=== PATIENT | male | born 1960 | race Caucasian/White ===

== ENCOUNTER 2017-03-23 14:26 | Inpatient (IN) | payer OTHER ==
[2017-03-23 14:48] VITALS: BMI 28.6
--- NOTE | 2017-03-23 17:41 | HP ---
CIWA Score - CIWA Score Nausea/Vomitin Muscle Tremors: 3 Anxiety: 3 Agitation: 3 Paroxysmal Sweats: 1-Minimal Palms Moist Orientation: 0-Oriented Tacttile Disturbances: 2-Mild Itch/Numbness/Burn Auditory Disturbances: 2-Mild Harshness/Frighten Visual Disturbances: 2-Mild Sensitivity Headache: 2-Mild CIWA-Ar Total Score: 21 Admission ROS BHS - HPI Chief Complaint: i need help to stop drinking alcohol Allergies/Adverse Reactions: Allergies Allergy/AdvReac Type Severity Reaction Status Date / Time No Known Allergies Allergy Verified 03/23/17 15:28 History of Present Illness: this 56 year old white male seeking help to come to detox from alcohol,last detox 01/25 [facility] longest period of sobriety 6 months multiple admissions in the past multiple medical problem,htn,type 2 dm,seizure,depression,insomnia Exam Limitations: No Limitations - Ebola screening Have you traveled outside of the country in the last 21 days: No (N) Have you had contact with anyone from an Ebola affected area: No Have you been sick,other than usual withdrawal symptoms: No Do you have a fever: No - Review of Systems Constitutional: Loss of Appetite, Night Sweats, Changes in sleep, Weakness EENT: reports: Nose Congestion Respiratory: reports: No Symptoms reported, Other (coppd) Cardiac: reports: No Symptoms Reported GI: reports: Diarrhea, Nausea, Poor Appetite, Abdominal cramping : reports: No Symptoms Reported Musculoskeletal: reports: Back Pain, Joint Pain, Muscle Pain Integumentary: reports: Dryness Neuro: reports: Headache, Tremors Endocrine: reports: No Symptoms Reported Hematology: reports: No Symptoms Reported Psychiatric: reports: No Sypmtoms Reported, Judgement Intact, Mood/Affect Appropiate, Orientated x3, Depressed (insomnia) Patient History - Patient Medical History Hx Anemia: Yes (NOT ON MEDS) Hx Asthma: No Hx Chronic Obstructive Pulmonary Disease (COPD): No Hx Cardiac Disorders: No Hx Hypertension: Yes (on med) Hx Hypercholesterolemia: Yes (on med) Hx Pacemaker: No HX Cerebrovascular Accident: No Hx Seizures: Yes (2 WEEKS AGO) Hx Diabetes: Yes (bgm-96) Hx Gastrointestinal Disorders: No Hx Liver Disease: No Hx Genitourinary Disorders: No Hx Sexually Transmitted Disorders: No Hx Renal Disease (ESRD): No Hx Thyroid Disease: Yes (ON MED BUT NONCOMPLIANT nhypothyroidism) Hx Human Immunodeficiency Virus (HIV): No (NEGATIVE HX last 08/26) Hx Hepatitis C: No Hx Depression: Yes Hx Suicide Attempt: Yes (attempted to jump in front of the bus) Hx Bipolar Disorder: No Hx Schizophrenia: No Other Medical History: no suicidal,no homicidal - Patient Surgical History Past Surgical History: Yes Hx Abdominal Surgery: Yes (intestinal repair sx in 1999/ umbillical hernia repair) Hx Orthopedic Surgery: Yes (L ankle fx sx 20 years ago) Other Surgical History: surgery for diverticulitis Anesthesia Reaction: No - PPD History Previous Implant?: Yes Documented Results: Negative w/proof Implanted On Prior R Admission?: Yes Date: 08/19/15 PPD to be Administered?: Yes - Smoking Cessation Smoking history: Current every day smoker Have you smoked in the past 12 months: Yes Aproximately how many cigarettes per day: 20 Hx Chewing Tobacco Use: No Initiated information on smoking cessation: Yes 'Breaking Loose' booklet given: 03/23/17 - Substance & Tx. History Hx Alcohol Use: Yes - Substances Abused Alcohol Route: Oral Frequency: Daily Amount used: VODKA(2 PINTS)/[employer] ICE TEA(1 PINT) Age of first use: 8 Date of Last Use: 03/23/17 Family Disease History - Family Disease History Family Disease History: Other: Father (alcohol,), Mother (alcohol, ) Admission Physical Exam BHS - Vital Signs Vital Signs: Vital Signs - 24 hr 03/23/17 14:46 Temperature 95.8 F L Pulse Rate 88 Respiratory 20 Rate Blood Pressure 136/83 - Physical General Appearance: Yes: Moderate Distress, Tremorous, Irritable, Sweating, Anxious HEENTM: Yes: Hearing grossly Normal, Normal ENT Inspection, Normocephalic, Nasal Congestion Respiratory: Yes: Lungs Clear, Normal Breath Sounds, No Respiratory Distress Neck: Yes: Within Normal Limits Breast: Yes: Within Normal Limits Cardiology: Yes: Regular Rhythm, Regular Rate, S1, S2, Bradycardia Abdominal: Yes: Within Normal Limits, Normal Bowel Sounds, Non Tender, Flat, Soft, Surgical Scar (incisional hernia) Genitourinary: Yes: Within Normal Limits Back: Yes: Muscle Spasm Musculoskeletal: Yes: full range of Motion, Back pain, Muscle Pain Extremities: Yes: Tremors Neurological: Yes: helper maintenance cleaning II-XII NML intact, Alert, Motor Strength 5/5, Normal Response Integumentary: Yes: Dry Lymphatic: Yes: Within Normal Limits - Diagnostic (1) Alcohol dependence with uncomplicated withdrawal Current Visit: No Status: Acute (2) Hypertension Current Visit: No Status: Chronic (3) Hypothyroidism Current Visit: No Status: Chronic (4) MDD (major depressive disorder), recurrent episode, moderate Current Visit: No Status: Chronic (5) Nicotine dependence Current Visit: No Status: Chronic (6) Type 2 diabetes mellitus Current Visit: No Status: Chronic (7) COPD (chronic obstructive pulmonary disease) Current Visit: Yes Status: Acute (8) Seizure Current Visit: Yes Status: Acute (9) Syncope Current Visit: Yes Status: Acute (10) Insomnia Current Visit: Yes Status: Acute (11) History of bowel diversion surgery Current Visit: Yes Status: Acute (12) Diverticulitis Current Visit: Yes Status: Acute (13) Incisional hernia Current Visit: Yes Status: Acute Cleared for Admission S - Detox or Rehab [facility] Level of Care: Medically Managed Detox Regimen/Protocol: Librium [facility] Breath Alcohol Content Breath Alcohol Content: 0.222 Urine Drug Screen - Results Drug Screen Negative: No Urine Drug Screen Results: BZO-Benzodiazepines, TCA-Tricyclic Antidepress
[2017-03-23] MEDS ORDERED: MAGNESIUM HYDROX 2400MG/30ML ORAL SUSPENSION 30 ML CUP PO PRN (18:05)
[2017-03-23] MEDS ORDERED: MAGNESIUM CITRATE 300 ML BOTTLE PO PRN (18:05)
[2017-03-23] MEDS ORDERED: P-EPHED 60MG/TRIPROLIDI 2.5MG TABLET PO PRN (18:05)
[2017-03-23] MEDS ORDERED: guaiFENesin/D-METHORPHAN HB 10 ML UNIT-DOSE CUPS PO PRN (18:05)
[2017-03-23] MEDS ORDERED: IBUPROFEN 400 MG TABLET (FP) PO PRN (18:05)
[2017-03-23] MEDS ORDERED: chlordiazePOXIDE HCL 25 MG CAPSULE PO PRN (18:05)
[2017-03-23] MEDS ORDERED: ACETAMINOPHEN 325 MG TABLET (FP) PO PRN (18:05)
[2017-03-23] MEDS ORDERED: MENTHOL/PHENOL 1 EACH UD MM PRN (18:05)
[2017-03-23] MEDS ORDERED: MAG HYDROX/AL HYDROX/SIMETH 30 ML UNIT-DOSE CUP PO PRN (18:05)
[2017-03-23] MEDS ORDERED: chlordiazePOXIDE HCL 25 MG CAPSULE PO ONE (18:05)
[2017-03-23] MEDS: ROSUVASTATIN CA 10 MG TABLET (FP) PO SCH (22:41)
[2017-03-23] MEDS: chlordiazePOXIDE HCL 25 MG CAPSULE PO SCH (22:41)
[2017-03-23] MEDS: diphenhydrAMINE HCL 50 MG CAPSULE PO PRN (22:41)
[2017-03-23] MEDS: THIAMINE HCL 100 MG TABLET (FP) PO SCH (22:41)
[2017-03-24] MEDS: chlordiazePOXIDE HCL 25 MG CAPSULE PO SCH ×4 (05:21→22:44)
[2017-03-24] MEDS: LEVOTHYROXINE NA 25 MCG TABLET (FP) PO SCH (06:49)
[2017-03-24] MEDS: metFORMIN HCL 500 MG TABLET (FP) PO SCH ×2 (06:49→16:30)
[2017-03-24 09:52] LABS: MCH 32.5 pg (25.7-33.7); MCHC 33.8 g/dl (32.0-35.9); MEAN CELL VOLUME 96.2 fl (80-96); MEAN PLT VOLUME 8.8 fl (7.5-11.1); PLATELET COUNT 156 K/MM3 (134-434); RDW 15.2 % (11.9-15.9); WHITE BLOOD COUNT 6.1 K/mm3 (4.0-10.0)
[2017-03-24 10:05] LABS: ALBUMIN 3.7 g/dl (3.4-5.0); ANION GAP 10 (8-16); BILIRUBIN,TOTAL 0.4 mg/dL (0.2-1.0); CALCIUM 8.3 mg/dL (8.5-10.1); CHOLESTEROL 274 mg/dL (50-200); CO2 29 mmol/L (21-32); COCKROFT - GAULT 119.61; CREATININE 0.8 mg/dL (0.7-1.3); GLUCOSE,RANDOM 86 mg/dL (74-106); SGPT/ALT 42 U/L (12-78); THYROXINE (T4) 4.1 ug/dl (4.5-12.1); TOT PROT 6.9 g/dl (6.4-8.2)
[2017-03-24 10:11] LABS: ALK PHOS 110 U/L (45-117); LDL CHOLESTEROL (ONLY SJRH) 156 mg/dL (5-100); SGOT/AST 44 U/L (15-37); THYROID STIMULATING HORMONE 3.52 uIU/ml (0.358-3.74)
[2017-03-24] MEDS: NICOTINE 21 MG/24 HOURS TOPICAL PATCH TD SCH (10:47)
[2017-03-24] MEDS: PRENATAL VITAMINS W/ FOLIC ACID TABLET (FP) PO SCH (10:47)
[2017-03-24] MEDS: amLODIPine BESYLATE 10 MG TABLET (FP) PO SCH (10:47)
[2017-03-24] MEDS: LOPERAMIDE HCL 2 MG CAPSULE PO PRN (12:40)
[2017-03-24] MEDS ORDERED: ALBUTEROL SO4 2.5/IPRATROPIUM 0.5 INH SOL 3 ML VIAL.NEB. NEB PRN (14:52)
[2017-03-24] MEDS ORDERED: POTASSIUM CHLORIDE TABS 20 MEQ TABLET.ER (FP) PO ONE (14:57)
--- NOTE | 2017-03-24 14:57 | PN ---
[facility] CIWA - CIWA Score Nausea/Vomitin-Mild Nausea/No Vomiting Muscle Tremors: 4-Moderate,w/Arms Extend Anxiety: 2 Agitation: 2 Paroxysmal Sweats: 2 Orientation: 0-Oriented Tacttile Disturbances: 2-Mild Itch/Numbness/Burn Auditory Disturbances: 2-Mild Harshness/Frighten Visual Disturbances: 2-Mild Sensitivity Headache: 0-None Present CIWA-Ar Total Score: 17 BHS Progress Note (SOAP) Subjective: Diarrhea, Interrupted Sleep, Tremors, Body Aches. Objective: PT. A & O X 3, OBSERVED AMBULATING ON UNIT. PT. DENIES CHEST PAIN. PATIENT REPORTS HISTORY OF COPD. 03/24/17 14:55 Vital Signs Temperature 96.7 F L 03/24/17 13:27 Pulse Rate 83 03/24/17 13:27 Respiratory Rate 20 03/24/17 13:27 Blood Pressure 154/103 03/24/17 13:27 O2 Sat by Pulse Oximetry (%) Laboratory Last Values WBC 6.1 K/mm3 (4.0-10.0) 03/24/17 07:30 RBC 4.49 M/mm3 (4.00-5.60) 03/24/17 07:30 Hgb 14.6 GM/dL (11.7-16.9) D 03/24/17 07:30 Hct 43.2 % (35.4-49) D 03/24/17 07:30 MCV 96.2 fl (80-96) H 03/24/17 07:30 MCHC 33.8 g/dl (32.0-35.9) 03/24/17 07:30 RDW 15.2 % (11.9-15.9) D 03/24/17 07:30 Plt Count 156 K/MM3 (134-434) D 03/24/17 07:30 MPV 8.8 fl (7.5-11.1) D 03/24/17 07:30 Sodium 142 mmol/L (136-145) 03/24/17 07:30 Potassium 3.4 mmol/L (3.5-5.1) L 03/24/17 07:30 Chloride 103 mmol/L (98-107) 03/24/17 07:30 Carbon Dioxide 29 mmol/L (21-32) D 03/24/17 07:30 Anion Gap 10 (8-16) 03/24/17 07:30 BUN 16 mg/dL (7-18) 03/24/17 07:30 Creatinine 0.8 mg/dL (0.7-1.3) D 03/24/17 07:30 Creat Clearance w eGFR > 60 (>60) 03/24/17 07:30 POC Glucometer 94 UNITS (()) 03/24/17 05:20 Random Glucose 86 mg/dL (74-106) D 03/24/17 07:30 Calcium 8.3 mg/dL (8.5-10.1) L 03/24/17 07:30 Total Bilirubin 0.4 mg/dL (0.2-1.0) D 03/24/17 07:30 AST 44 U/L (15-37) H D 03/24/17 07:30 ALT 42 U/L (12-78) D 03/24/17 07:30 Alkaline Phosphatase 110 U/L (45-117) D 03/24/17 07:30 Total Protein 6.9 g/dl (6.4-8.2) 03/24/17 07:30 Albumin 3.7 g/dl (3.4-5.0) 03/24/17 07:30 Triglycerides 240 mg/dL (35-160) H 03/24/17 07:30 Cholesterol 274 mg/dL (50-200) H 03/24/17 07:30 Total LDL Cholesterol 156 mg/dL (5-100) H 03/24/17 07:30 HDL Cholesterol 81 mg/dL (40-60) H 03/24/17 07:30 TSH 3.52 uIU/ml (0.358-3.74) D 03/24/17 07:30 Resin T3 Uptake 38.0 % (33-40) 03/24/17 07:30 RPR Titer Nonreactive (NONREACTIVE) 03/24/17 07:30 LABS NOTED. Assessment: WITHDRAWAL SYMPTOMS. 03/24/17 15:01 Plan: CONTINUE DETOX. DUONEB TREATMENTS PRN. K, 20 MEQ X 1 NOW, THEN 20 MEQ BID AFTER FOR LOW ADMISSION K LEVEL. ADVISED PATIENT TO FOLLOW-UP WITH [employer] [facility] AFTER DISCHARGE FROM DETOX FOR GENERAL MEDICAL ASSESSMENT AND FOR ABNORMAL ADMISSION LAB VALUES.
[2017-03-24] MEDS: ALBUTEROL SO4 6.7 GM HFA INHALER IH PRN ×2 (18:03→22:44)
[2017-03-24] MEDS: POTASSIUM CHLORIDE TABS 20 MEQ TABLET.ER (FP) PO SCH (22:44)
[2017-03-24] MEDS: THIAMINE HCL 100 MG TABLET (FP) PO SCH (22:44)
[2017-03-24] MEDS: ROSUVASTATIN CA 10 MG TABLET (FP) PO SCH (22:44)
[2017-03-24] MEDS: diphenhydrAMINE HCL 50 MG CAPSULE PO PRN (22:45)
[2017-03-25] MEDS: chlordiazePOXIDE HCL 25 MG CAPSULE PO SCH ×3 (05:29→17:01)
[2017-03-25] MEDS: metFORMIN HCL 500 MG TABLET (FP) PO SCH ×2 (06:04→17:01)
[2017-03-25] MEDS: LEVOTHYROXINE NA 25 MCG TABLET (FP) PO SCH (06:05)
[2017-03-25] MEDS: ALBUTEROL SO4 6.7 GM HFA INHALER IH PRN (06:06)
[2017-03-25] MEDS: POTASSIUM CHLORIDE TABS 20 MEQ TABLET.ER (FP) PO SCH ×2 (10:40→22:38)
[2017-03-25] MEDS: NICOTINE 21 MG/24 HOURS TOPICAL PATCH TD SCH (10:40)
[2017-03-25] MEDS: PRENATAL VITAMINS W/ FOLIC ACID TABLET (FP) PO SCH (10:40)
[2017-03-25] MEDS: amLODIPine BESYLATE 10 MG TABLET (FP) PO SCH (10:40)
--- NOTE | 2017-03-25 13:03 | EKG ---
Test Reason : Blood Pressure : / mmHG Vent. Rate : 083 BPM Atrial Rate : 083 BPM P-R Int : 168 ms QRS Dur : 094 ms QT Int : 406 ms P-R-T Axes : 066 056 054 degrees QTc Int : 477 ms NORMAL SINUS RHYTHM NORMAL ECG NO PREVIOUS ECGS AVAILABLE Confirmed by MICHEAL ENRIQUE MD ([id number]) on 03/25/2017 1:03:24 PM Referred By: Confirmed By:MICHEAL ENRIQUE MD
--- NOTE | 2017-03-25 13:24 | PN ---
S CIWA - CIWA Score Nausea/Vomitin-Mild Nausea/No Vomiting Muscle Tremors: 4-Moderate,w/Arms Extend Anxiety: 3 Agitation: 3 Paroxysmal Sweats: 3 Orientation: 0-Oriented Tacttile Disturbances: 0-None Auditory Disturbances: 0-None Visual Disturbances: 0-None Headache: 0-None Present CIWA-Ar Total Score: 14 S Progress Note (SOAP) Subjective: Anxiety,tremors,sweating,interrupted sleep,restless Objective: 03/25/17 13:21 Vital Signs - 8 hr 03/25/17 03/25/17 03/25/17 06:26 09:25 13:19 Temperature 96.8 F L 96.0 F L 97.2 F L Pulse Rate 88 90 91 H Respiratory 18 20 20 Rate Blood Pressure 145/101 138/89 151/101 Laboratory Tests 03/23/17 03/24/17 03/24/17 15:40 05:20 07:30 WBC 6.1 RBC 4.49 Hgb 14.6 D Hct 43.2 D MCV 96.2 H MCHC 33.8 RDW 15.2 D Plt Count 156 D MPV 8.8 D Sodium Potassium Chloride Carbon Dioxide Anion Gap BUN Creatinine Creat Clearance w eGFR POC Glucometer 96 94 Random Glucose Calcium Total Bilirubin AST ALT Alkaline Phosphatase Total Protein Albumin Triglycerides Cholesterol Total LDL Cholesterol HDL Cholesterol TSH Resin T3 Uptake RPR Titer 03/24/17 03/24/17 03/24/17 07:30 07:30 07:30 WBC RBC Hgb Hct MCV MCHC RDW Plt Count MPV Sodium 142 Potassium 3.4 L Chloride 103 Carbon Dioxide 29 D Anion Gap 10 BUN 16 Creatinine 0.8 D Creat Clearance w eGFR > 60 POC Glucometer Random Glucose 86 D Calcium 8.3 L Total Bilirubin 0.4 D AST 44 H D ALT 42 D Alkaline Phosphatase 110 D Total Protein 6.9 Albumin 3.7 Triglycerides 240 H Cholesterol 274 H Total LDL Cholesterol 156 H HDL Cholesterol 81 H TSH 3.52 D Cancelled Resin T3 Uptake 38.0 Cancelled RPR Titer Nonreactive 03/24/17 03/24/17 03/25/17 07:30 16:25 05:30 WBC RBC Hgb Hct MCV MCHC RDW Plt Count MPV Sodium Potassium Chloride Carbon Dioxide Anion Gap BUN Creatinine Creat Clearance w eGFR POC Glucometer 134 114 Random Glucose Calcium Total Bilirubin AST ALT Alkaline Phosphatase Total Protein Albumin Triglycerides Cancelled Cholesterol Cancelled Total LDL Cholesterol Cancelled HDL Cholesterol Cancelled TSH Resin T3 Uptake RPR Titer labs noted Assessment: 03/25/17 13:22 Withdrawal sx. Hyperlipidemia Hypokalemia Plan: Continue detox
--- NOTE | 2017-03-25 14:53 | CONSULT ---
[facility] Psychiatric Consult - Data Date of interview: 03/25/17 Admission source: [facility] Identifying data: Readmission to [facility] for this 56 y/o male seeking detox treatment on for alcohol dependence.Patient is single,a father of three,domiciled,unemployed and supported on [facility] benefits. Substance Abuse History: - Smoking Cessation. Smoking history: Current every day smoker. Have you smoked in the past 12 months: Yes. Aproximately how many cigarettes per day: 20. Hx Chewing Tobacco Use: No. Initiated information on smoking cessation: Yes. 'Breaking Loose' booklet given: 03/23/17. - Substance & Tx. History. Hx Alcohol Use: Yes. - Substances Abused. Alcohol. Route: Oral. Frequency: Daily. Amount used: VODKA(2 PINTS)/[employer] ICE TEA(1 PINT). Age of first use: 8. Date of Last Use: 03/23/17. Confirmed by patient. Medical History: COPD,anemia,hypertension,hypothyroidism,alcohol-related seizures,diabetes mellitus and a history of surgeries (abdominal surgery for diverticulosis and inguinal herniorraphy).Noted past history of orthosurgery for fracture of left ankle. Psychiatric History: Early onset of emotional disturbances (committed to [facility] at age [age] for depression).History of multiple psychiatric hospitalizations.Patient is known to [facility] and [place].Diagnosed with MDD and prescribed zoloft 150 mg/day + trazodone 150 mg/hs.Mr Maravilla admits to sporadic adherence to his medications." I don't take these medications on a daily basis.I skipped days." Patient informs that he does not have a psychiatric OPD care provider.Stopped going to [facility] OPD clinic.For scripts,he relies on a primary care doctor.Eager to resume medications at this time.Patient denies history of suicide attempts. Physical/Sexual Abuse/Trauma History: Patient denies. Additional Comment: Urine Drug Screen Results: BZO-Benzodiazepines, TCA- Tricyclic Antidepressant.Noted. Mental Status Exam - Mental Status Exam Alert and Oriented to: Time, Place, Person Cognitive Function: Good Patient Appearance: Unkempt, Disheveled Mood: Depressed, Sad, Withdrawn, Anxious Affect: Constricted Patient Behavior: Fatigued, Appropriate, Cooperative Speech Pattern: Clear Voice Loudness: Normal Thought Process: Goal Oriented Thought Disorder: Not Present Hallucinations: Denies Suicidal Ideation: Denies Homicidal Ideation: Denies Insight/Judgement: Poor Sleep: Poorly, Difficulty falling asleep Appetite: Fair Muscle strength/Tone: Normal Gait/Station: Normal Psychiatric Findings - Problem List (Central 1, 2,3) (1) Alcohol dependence with uncomplicated withdrawal Current Visit: Yes Status: Acute (2) Nicotine dependence Current Visit: Yes Status: Acute (3) MDD (major depressive disorder), recurrent episode, moderate Current Visit: Yes Status: Chronic (4) COPD (chronic obstructive pulmonary disease) Current Visit: Yes Status: Chronic (5) Diverticulitis Current Visit: No Status: Chronic (6) History of bowel diversion surgery Current Visit: No Status: Chronic (7) Incisional hernia Current Visit: No Status: Chronic (8) Seizure Current Visit: Yes Status: Acute (9) Hypertension Current Visit: Yes Status: Chronic (10) Hypothyroidism Current Visit: Yes Status: Chronic (11) Type 2 diabetes mellitus Current Visit: Yes Status: Chronic (12) Insomnia Current Visit: Yes Status: Acute - Initial Treatment Plan Initial Treatment Plan: Psychoeducation.Detoxification.Medications : zoloft 100 mg po daily + trazodone 100 mg po hs.Side effects/benefits discussed with patient.Made aware of potential for priapism (trazodone) and suicidal ideation, sexual impotence (zoloft).Patient insists that these medications have always been well tolerated and he agrees to their inclusion in this regimen.Observation.
[2017-03-25 14:55] LABS: URINE APPEARANCE CLEAR; URINE BILIRUBIN NEGATIVE (NEGATIVE); URINE BLOOD NEGATIVE (NEGATIVE); URINE COLOR LTYELLOW; URINE GLUCOSE (UA) NEGATIVE (NEGATIVE); URINE KETONE NEGATIVE (NEGATIVE); URINE LEUK ESTERASE NEGATIVE (NEGATIVE); URINE NITRITE NEGATIVE (NEGATIVE); URINE PROTEIN NEGATIVE (NEGATIVE); URINE UROBILINOGEN NEGATIVE E.U./dl (0.2-1.0)
[2017-03-25] MEDS ORDERED: SERTRALINE HCL 50 MG TABLET (FP) PO SCH (15:00)
[2017-03-25] MEDS: SERTRALINE HCL 50 MG TABLET (FP) PO SCH (15:18)
[2017-03-25] MEDS: hydrOXYzine PAMOATE 50 MG CAPSULE (FP) PO PRN (17:04)
[2017-03-25] MEDS: traZODone HCL 100 MG TABLET (FP) PO SCH (22:38)
[2017-03-25] MEDS: THIAMINE HCL 100 MG TABLET (FP) PO SCH (22:38)
[2017-03-25] MEDS: ROSUVASTATIN CA 10 MG TABLET (FP) PO SCH (22:38)
[2017-03-25] MEDS: chlordiazePOXIDE 5 MG CAPSULE PO SCH (22:38)
[2017-03-26] MEDS: hydrOXYzine PAMOATE 50 MG CAPSULE (FP) PO PRN ×2 (05:32→10:52)
[2017-03-26] MEDS: chlordiazePOXIDE 5 MG CAPSULE PO SCH ×3 (05:33→17:06)
[2017-03-26] MEDS: LEVOTHYROXINE NA 25 MCG TABLET (FP) PO SCH (07:20)
[2017-03-26] MEDS: metFORMIN HCL 500 MG TABLET (FP) PO SCH ×2 (07:21→17:05)
[2017-03-26] MEDS: SERTRALINE HCL 50 MG TABLET (FP) PO SCH (10:49)
[2017-03-26] MEDS: PRENATAL VITAMINS W/ FOLIC ACID TABLET (FP) PO SCH (10:49)
[2017-03-26] MEDS: NICOTINE 21 MG/24 HOURS TOPICAL PATCH TD SCH (10:49)
[2017-03-26] MEDS: amLODIPine BESYLATE 10 MG TABLET (FP) PO SCH (10:49)
[2017-03-26] MEDS: POTASSIUM CHLORIDE TABS 20 MEQ TABLET.ER (FP) PO SCH ×2 (10:49→22:32)
[2017-03-26] MEDS: ALBUTEROL SO4 6.7 GM HFA INHALER IH PRN (10:52)
[2017-03-26] MEDS: LOPERAMIDE HCL 2 MG CAPSULE PO PRN (12:27)
--- NOTE | 2017-03-26 12:34 | PN ---
S Progress Note (SOAP) Subjective: ANXIETY,SWEATS,DIARRHEA Objective: 03/26/17 12:32 Vital Signs Temperature 98 F 03/26/17 10:33 Pulse Rate 100 H 03/26/17 10:33 Respiratory Rate 18 03/26/17 10:33 Blood Pressure 140/95 03/26/17 10:33 O2 Sat by Pulse Oximetry (%) Laboratory Last Values WBC 6.1 K/mm3 (4.0-10.0) 03/24/17 07:30 RBC 4.49 M/mm3 (4.00-5.60) 03/24/17 07:30 Hgb 14.6 GM/dL (11.7-16.9) D 03/24/17 07:30 Hct 43.2 % (35.4-49) D 03/24/17 07:30 MCV 96.2 fl (80-96) H 03/24/17 07:30 MCHC 33.8 g/dl (32.0-35.9) 03/24/17 07:30 RDW 15.2 % (11.9-15.9) D 03/24/17 07:30 Plt Count 156 K/MM3 (134-434) D 03/24/17 07:30 MPV 8.8 fl (7.5-11.1) D 03/24/17 07:30 Sodium 142 mmol/L (136-145) 03/24/17 07:30 Potassium 3.4 mmol/L (3.5-5.1) L 03/24/17 07:30 Chloride 103 mmol/L (98-107) 03/24/17 07:30 Carbon Dioxide 29 mmol/L (21-32) D 03/24/17 07:30 Anion Gap 10 (8-16) 03/24/17 07:30 BUN 16 mg/dL (7-18) 03/24/17 07:30 Creatinine 0.8 mg/dL (0.7-1.3) D 03/24/17 07:30 Creat Clearance w eGFR > 60 (>60) 03/24/17 07:30 POC Glucometer 100 UNITS (()) 03/26/17 05:30 Random Glucose 86 mg/dL (74-106) D 03/24/17 07:30 Calcium 8.3 mg/dL (8.5-10.1) L 03/24/17 07:30 Total Bilirubin 0.4 mg/dL (0.2-1.0) D 03/24/17 07:30 AST 44 U/L (15-37) H D 03/24/17 07:30 ALT 42 U/L (12-78) D 03/24/17 07:30 Alkaline Phosphatase 110 U/L (45-117) D 03/24/17 07:30 Total Protein 6.9 g/dl (6.4-8.2) 03/24/17 07:30 Albumin 3.7 g/dl (3.4-5.0) 03/24/17 07:30 Triglycerides 240 mg/dL (35-160) H 03/24/17 07:30 Cholesterol 274 mg/dL (50-200) H 03/24/17 07:30 Total LDL Cholesterol 156 mg/dL (5-100) H 03/24/17 07:30 HDL Cholesterol 81 mg/dL (40-60) H 03/24/17 07:30 TSH 3.52 uIU/ml (0.358-3.74) D 03/24/17 07:30 Resin T3 Uptake 38.0 % (33-40) 03/24/17 07:30 Urine Color Ltyellow 03/25/17 12:30 Urine Appearance Clear 03/25/17 12:30 Urine pH 6.0 (5.0-8.0) 03/25/17 12:30 Ur Specific [place] 1.015 (1.005-1.025) 03/25/17 12:30 Urine Protein Negative (NEGATIVE) 03/25/17 12:30 Urine Glucose (UA) Negative (NEGATIVE) 03/25/17 12:30 Urine Ketones Negative (NEGATIVE) 03/25/17 12:30 Urine Blood Negative (NEGATIVE) 03/25/17 12:30 Urine Nitrite Negative (NEGATIVE) 03/25/17 12:30 Urine Bilirubin Negative (NEGATIVE) 03/25/17 12:30 Urine Urobilinogen Negative E.U./dl (0.2-1.0) 03/25/17 12:30 Ur Leukocyte Esterase Negative (NEGATIVE) 03/25/17 12:30 RPR Titer Nonreactive (NONREACTIVE) 03/24/17 07:30 LABS NOTED Assessment: 05/16/17 12:32 WITHDRAWAL SX Plan: CONTINUE DETOX IMODIUM PRN ON KDUR
[2017-03-26] MEDS: chlordiazePOXIDE HCL 10 MG CAPSULE PO SCH (22:32)
[2017-03-26] MEDS: THIAMINE HCL 100 MG TABLET (FP) PO SCH (22:32)
[2017-03-26] MEDS: traZODone HCL 100 MG TABLET (FP) PO SCH (22:32)
[2017-03-26] MEDS: ROSUVASTATIN CA 10 MG TABLET (FP) PO SCH (22:32)
[2017-03-26] MEDS: diphenhydrAMINE HCL 50 MG CAPSULE PO PRN (22:33)
[2017-03-27] MEDS: chlordiazePOXIDE HCL 10 MG CAPSULE PO SCH (05:26)
[2017-03-27] MEDS: LEVOTHYROXINE NA 25 MCG TABLET (FP) PO SCH (06:04)
[2017-03-27] MEDS: metFORMIN HCL 500 MG TABLET (FP) PO SCH (06:33)
[2017-03-27 06:40] VITALS: BP 153/113; PULSE 91; TEMP 97
--- NOTE | 2017-03-27 12:47 | DS ---
[facility] Detox Discharge Summary Admission Date: 03/23/17 Discharge Date: 03/27/17 - History Present History: Alcohol Dependence Additional Comments: ADVISED PATIENT TO FOLLOW-UP WITH [facility] / REHAB MEDICAL PROVIDER AFTER DISCHARGE FROM DETOX FOR GENERAL MEDICAL ASSESSMENT. Pertinent Past History: Anemia, HTN, Hypercholesterolemia, Depression, COPD, Diverticulitis, Seizures, DM, Hypothyroidism. - Physical Exam Results Vital Signs: Vital Signs Temperature 97.0 F L 03/27/17 06:39 Pulse Rate 91 H 03/27/17 06:39 Respiratory Rate 18 03/27/17 06:39 Blood Pressure 153/113 03/27/17 06:39 O2 Sat by Pulse Oximetry (%) Pertinent Admission Physical Exam Findings: WITHDRAWAL SYMPTOMS. Laboratory Last Values WBC 6.1 K/mm3 (4.0-10.0) 03/24/17 07:30 RBC 4.49 M/mm3 (4.00-5.60) 03/24/17 07:30 Hgb 14.6 GM/dL (11.7-16.9) D 03/24/17 07:30 Hct 43.2 % (35.4-49) D 03/24/17 07:30 MCV 96.2 fl (80-96) H 03/24/17 07:30 MCHC 33.8 g/dl (32.0-35.9) 03/24/17 07:30 RDW 15.2 % (11.9-15.9) D 03/24/17 07:30 Plt Count 156 K/MM3 (134-434) D 03/24/17 07:30 MPV 8.8 fl (7.5-11.1) D 03/24/17 07:30 Sodium 142 mmol/L (136-145) 03/24/17 07:30 Potassium 3.4 mmol/L (3.5-5.1) L 03/24/17 07:30 Chloride 103 mmol/L (98-107) 03/24/17 07:30 Carbon Dioxide 29 mmol/L (21-32) D 03/24/17 07:30 Anion Gap 10 (8-16) 03/24/17 07:30 BUN 16 mg/dL (7-18) 03/24/17 07:30 Creatinine 0.8 mg/dL (0.7-1.3) D 03/24/17 07:30 Creat Clearance w eGFR > 60 (>60) 03/24/17 07:30 POC Glucometer 106 UNITS (()) 03/27/17 05:30 Random Glucose 86 mg/dL (74-106) D 03/24/17 07:30 Calcium 8.3 mg/dL (8.5-10.1) L 03/24/17 07:30 Total Bilirubin 0.4 mg/dL (0.2-1.0) D 03/24/17 07:30 AST 44 U/L (15-37) H D 03/24/17 07:30 ALT 42 U/L (12-78) D 03/24/17 07:30 Alkaline Phosphatase 110 U/L (45-117) D 03/24/17 07:30 Total Protein 6.9 g/dl (6.4-8.2) 03/24/17 07:30 Albumin 3.7 g/dl (3.4-5.0) 03/24/17 07:30 Triglycerides 240 mg/dL (35-160) H 03/24/17 07:30 Cholesterol 274 mg/dL (50-200) H 03/24/17 07:30 Total LDL Cholesterol 156 mg/dL (5-100) H 03/24/17 07:30 HDL Cholesterol 81 mg/dL (40-60) H 03/24/17 07:30 TSH 3.52 uIU/ml (0.358-3.74) D 03/24/17 07:30 Resin T3 Uptake 38.0 % (33-40) 03/24/17 07:30 Urine Color Ltyellow 03/25/17 12:30 Urine Appearance Clear 03/25/17 12:30 Urine pH 6.0 (5.0-8.0) 03/25/17 12:30 Ur Specific [place] 1.015 (1.005-1.025) 03/25/17 12:30 Urine Protein Negative (NEGATIVE) 03/25/17 12:30 Urine Glucose (UA) Negative (NEGATIVE) 03/25/17 12:30 Urine Ketones Negative (NEGATIVE) 03/25/17 12:30 Urine Blood Negative (NEGATIVE) 03/25/17 12:30 Urine Nitrite Negative (NEGATIVE) 03/25/17 12:30 Urine Bilirubin Negative (NEGATIVE) 03/25/17 12:30 Urine Urobilinogen Negative E.U./dl (0.2-1.0) 03/25/17 12:30 Ur Leukocyte Esterase Negative (NEGATIVE) 03/25/17 12:30 RPR Titer Nonreactive (NONREACTIVE) 03/24/17 07:30 LABS NOTED. - Treatment Hospital Course: Detox Protocol Followed, Detoxed Safely, Responded well, Discharged Condition Good Patient has Accepted a Rehab Referral to: NO - PATIENT ELECTING TO GO HOME. 12- STEP / AA PROGRAMS RECOMMENDED. - Medication Discharge Medications: Ambulatory Orders Sertraline HCl [Zoloft -] 50 mg PO DAILY #30 tablet 08/17/15 Levothyroxine [Synthroid -] 75 mcg PO DAILY #30 tablet 08/21/15 Metformin HCl [Glucophage -] 500 mg PO BID@0700,1630 #60 tablet 08/21/15 Thiamine HCl [Vitamin B1 -] 100 mg PO HS #30 tablet 08/21/15 Sertraline HCl [Zoloft] 100 mg PO DAILY #30 tablet 03/25/17 Trazodone HCl [Desyrel -] 150 mg PO HS 03/25/17 - Diagnosis (1) Alcohol dependence with uncomplicated withdrawal Status: Acute (2) Insomnia Status: Chronic Qualifiers: Insomnia type: unspecified Qualified Code(s): G47.00 - Insomnia, unspecified (3) Nicotine dependence Status: Chronic Qualifiers: Nicotine product type: cigarettes Substance use status: uncomplicated Qualified Code(s): F17.210 - Nicotine dependence, cigarettes, uncomplicated (4) Seizure Status: Acute (5) Syncope Status: Acute Qualifiers: Syncope type: unspecified Qualified Code(s): R55 - Syncope and collapse (6) COPD (chronic obstructive pulmonary disease) Status: Chronic Qualifiers: COPD type: unspecified COPD Qualified Code(s): J44.9 - Chronic obstructive pulmonary disease, unspecified (7) Diverticulitis Status: Chronic Qualifiers: Diverticulitis site: unspecified part of intestinal tract Diverticulitis bleeding: unspecified bleeding status Diverticulitis complication: unspecified complication status Qualified Code(s): K57.92 - Diverticulitis of intestine, part unspecified, without perforation or abscess without bleeding (8) History of bowel diversion surgery Status: Chronic (9) Hypertension Status: Chronic Qualifiers: Hypertension type: essential hypertension Qualified Code(s): I10 - Essential (primary) hypertension (10) Hypothyroidism Status: Chronic Qualifiers: Hypothyroidism type: unspecified Qualified Code(s): E03.9 - Hypothyroidism, unspecified (11) Incisional hernia Status: Chronic Qualifiers: Obstruction and gangrene presence: without obstruction or gangrene Qualified Code(s): K43.2 - Incisional hernia without obstruction or gangrene (12) MDD (major depressive disorder), recurrent episode, moderate Status: Chronic (13) Type 2 diabetes mellitus Status: Chronic Qualifiers: Diabetes mellitus complication status: without complication Diabetes mellitus shelter insulin use: unspecified 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
== END 2017-03-27 09:20 | disposition home or self-care (01) | DRG 897 ==
LOC: YASAS 14:26 → Y3N 16:11
PROVIDERS: ADMIT Internal Medicine Addiction Medicine; ATTEND Internal Medicine Addiction Medicine
PROC: HZ2ZZZZ Detoxification Services for Substance Abuse Treatment (ICD-10-PCS; principal; 2017-03-27)
DX: F10.230 Alcohol dependence with withdrawal, uncomplicated (principal); F33.9 Major depressive disorder, recurrent, unspecified; K57.92 Diverticulitis of intestine, part unspecified, without perforation or abscess without bleeding; F17.210 Nicotine dependence, cigarettes, uncomplicated; G47.00 Insomnia, unspecified; G43.909 Migraine, unspecified, not intractable, without status migrainosus; R55 Syncope and collapse; I10 Essential (primary) hypertension; E03.9 Hypothyroidism, unspecified; J44.9 Chronic obstructive pulmonary disease, unspecified; E11.9 Type 2 diabetes mellitus without complications; K43.2 Incisional hernia without obstruction or gangrene
CPT/HCPCS: 36415; 80053; 80061; 81003; 83721; 84436; 84443; 84479; 85027; 86593; 93005; 93010

== ENCOUNTER 2018-04-12 09:01 | Inpatient (IN) | payer OTHER ==
[2018-04-12 12:12] VITALS: BMI 27.6
--- NOTE | 2018-04-12 13:42 | HP ---
CIWA Score - CIWA Score Nausea/Vomitin-Mild Nausea/No Vomiting Muscle Tremors: 4-Moderate,w/Arms Extend Anxiety: 4-Mod. Anxious/Guarded Agitation: 1-Slight > Activity Paroxysmal Sweats: 1-Minimal Palms Moist Orientation: 0-Oriented Tacttile Disturbances: 1-Very Mild Itch/Numbness Auditory Disturbances: 1-Very Mild Visual Disturbances: 1-Very Mild Sensitivity Headache: 1-Very Mild CIWA-Ar Total Score: 15 Admission ROS S - HPI Chief Complaint: I know I have a problem drinking, I can't stop by myself Allergies/Adverse Reactions: Allergies Allergy/AdvReac Type Severity Reaction Status Date / Time No Known Allergies Allergy Verified 03/23/17 15:28 History of Present Illness: 57 yo gentleman here for detox from alcohol. Previously here 03/23/2017, states he was sober about a month then relapsed. History of seizures (last one in January 2018) and black outs. Exam Limitations: Clinical Condition - Ebola screening Have you traveled outside of the country in the last 21 days: No (N) Have you had contact with anyone from an Ebola affected area: No Have you been sick,other than usual withdrawal symptoms: No Do you have a fever: No - Review of Systems Constitutional: Loss of Appetite, Malaise, Changes in sleep EENT: reports: Blurred Vision, Nose Congestion Respiratory: reports: SOB with Exertion Cardiac: reports: No Symptoms Reported GI: reports: Poor Appetite, Poor Fluid Intake, Indigestion : reports: Frequency Musculoskeletal: reports: Muscle Pain, Muscle Weakness Integumentary: reports: Dryness Endocrine: reports: No Symptoms Reported Hematology: reports: No Symptoms Reported Psychiatric: reports: Judgement Intact, Mood/Affect Appropiate, Orientated x3, Anxious, other (history of meds, poor adherence) Other Systems: Reviewed and Negative Patient History - Patient Medical History Hx Anemia: No Hx Asthma: No Hx Chronic Obstructive Pulmonary Disease (COPD): Yes Hx Cancer: No Hx Cardiac Disorders: No Hx Hypertension: Yes (on med) Hx Hypercholesterolemia: Yes (on med) Hx Pacemaker: No HX Cerebrovascular Accident: No Hx Seizures: Yes (january 2018) Hx Diabetes: No Hx Gastrointestinal Disorders: No Hx Liver Disease: No Hx Genitourinary Disorders: No Hx Sexually Transmitted Disorders: No Hx Renal Disease (ESRD): No Hx Thyroid Disease: Yes (on meds - poor adherence) Hx Human Immunodeficiency Virus (HIV): No (NEGATIVE HX last 08/26) Hx Hepatitis C: No Hx Depression: Yes (hospitalized 2014) Hx Suicide Attempt: Yes (attempted to jump in front of the bus 2014) Hx Bipolar Disorder: No Hx Schizophrenia: No - Patient Surgical History Past Surgical History: Yes Hx Abdominal Surgery: Yes (intestinal repair sx in 1999/ umbillical hernia repair) Hx Orthopedic Surgery: Yes (L ankle fx sx 20 years ago) Other Surgical History: surgery for diverticulitis Anesthesia Reaction: No - PPD History Previous Implant?: Yes Documented Results: Negative w/proof Implanted On Prior R Admission?: Yes Date: 03/25/17 PPD to be Administered?: Yes - Reproductive History Patient is a Female of Child Bearing Age (11 -55 yrs old): No (male) - Smoking Cessation Smoking history: Current every day smoker Have you smoked in the past 12 months: Yes Aproximately how many cigarettes per day: 20 Hx Chewing Tobacco Use: No Initiated information on smoking cessation: Yes 'Breaking Loose' booklet given: 04/12/18 (give on floor) - Substance & Tx. History Hx Alcohol Use: Yes Hx Substance Use: No Substance Use Type: Alcohol Hx Substance Use Treatment: Yes (detox, rehab) - Substances Abused Alcohol Route: Oral Frequency: Daily Amount used: 3 pints liquor Age of first use: 15 Date of Last Use: 04/12/18 Family Disease History - Family Disease History Family Disease History: Heart Disease: Brother (two - living , one ETOH ), Other : Father (alcohol,), Mother (alcohol,), Brother, Sister (five - living ), Daughter (three - living - healthy) Admission Physical Exam BHS - Vital Signs Vital Signs: Vital Signs - 24 hr 04/12/18 12:11 Temperature 98.4 F Pulse Rate 104 H Respiratory 17 Rate Blood Pressure 167/106 - Physical General Appearance: Yes: Nourished, Appropriately Dressed, Moderate Distress, Anxious HEENTM: Yes: EOMI, Hearing grossly Normal, Normocephalic, Normal Voice, Pharynx Normal, Other (poor dentition, missing teeth) Respiratory: Yes: Normal Breath Sounds, No Respiratory Distress Neck: Yes: No masses,lesions,Nodules Breast: Yes: Breast Exam Deferred Cardiology: Yes: Regular Rhythm, Tachycardia Abdominal: Yes: Soft, Hernia (umbilical), Surgical Scar Genitourinary: Yes: Frequency Back: Yes: Normal Inspection Musculoskeletal: Yes: full range of Motion, Gait Steady Extremities: Yes: Normal Inspection, Non-Tender Neurological: Yes: Fully Oriented, Alert, Motor Strength 5/5, Normal Mood/Affect , Normal Response Integumentary: Yes: Normal Color, Warm Lymphatic: Yes: Within Normal Limits - Diagnostic (1) Alcohol dependence with uncomplicated withdrawal Current Visit: Yes Status: Acute (2) Seizure Current Visit: Yes Status: Acute (3) COPD (chronic obstructive pulmonary disease) Current Visit: Yes Status: Chronic Qualifiers: COPD type: unspecified COPD Qualified Code(s): J44.9 - Chronic obstructive pulmonary disease, unspecified (4) Diverticulitis Current Visit: Yes Status: Chronic Qualifiers: Diverticulitis site: unspecified part of intestinal tract Diverticulitis bleeding: unspecified bleeding status Diverticulitis complication: unspecified complication status Qualified Code(s): K57.92 - Diverticulitis of intestine, part unspecified, without perforation or abscess without bleeding (5) History of bowel diversion surgery Current Visit: Yes Status: Chronic (6) Hypertension Current Visit: Yes Status: Chronic Qualifiers: Hypertension type: essential hypertension Qualified Code(s): I10 - Essential (primary) hypertension (7) Hypothyroidism Current Visit: Yes Status: Chronic Qualifiers: Hypothyroidism type: unspecified Qualified Code(s): E03.9 - Hypothyroidism , unspecified (8) Nicotine dependence Current Visit: Yes Status: Chronic Qualifiers: Nicotine product type: cigarettes Substance use status: uncomplicated Qualified Code(s): F17.210 - Nicotine dependence, cigarettes, uncomplicated (9) Abdominal hernia Current Visit: Yes Status: Acute Qualifiers: Hernia type: ventral Obstruction and gangrene presence: without obstruction or gangrene Qualified Code(s): K43.9 - Ventral hernia without obstruction or gangrene Cleared for Admission BHS - Detox or Rehab [facility] Level of Care: Medically Managed Detox Regimen/Protocol: Librium [facility] Breath Alcohol Content Breath Alcohol Content: 0.014 Urine Drug Screen - Results Drug Screen Negative: No Urine Drug Screen Results: BZO-Benzodiazepines
[2018-04-12] MEDS ORDERED: ACETAMINOPHEN 325 MG TABLET (FP) PO PRN (13:52)
[2018-04-12] MEDS ORDERED: guaiFENesin/D-METHORPHAN HB 10 ML UNIT-DOSE CUPS PO PRN (13:52)
[2018-04-12] MEDS ORDERED: P-EPHED 60MG/TRIPROLIDI 2.5MG TABLET PO PRN (13:52)
[2018-04-12] MEDS ORDERED: IBUPROFEN 400 MG TABLET (FP) PO PRN (13:52)
[2018-04-12] MEDS ORDERED: LOPERAMIDE HCL 2 MG CAPSULE PO PRN (13:52)
[2018-04-12] MEDS ORDERED: MAG HYDROX/AL HYDROX/SIMETH 30 ML UNIT-DOSE CUP PO PRN (13:52)
[2018-04-12] MEDS ORDERED: hydrOXYzine PAMOATE 25 MG CAPSULE (FP) PO PRN (13:52)
[2018-04-12] MEDS ORDERED: MAGNESIUM CITRATE 300 ML BOTTLE PO PRN (13:52)
[2018-04-12] MEDS ORDERED: chlordiazePOXIDE HCL 25 MG CAPSULE PO PRN (13:52)
[2018-04-12] MEDS ORDERED: MAGNESIUM HYDROX 2400MG/30ML ORAL SUSPENSION 30 ML CUP PO PRN (13:52)
[2018-04-12] MEDS ORDERED: MENTHOL/PHENOL 1 EACH UD MM PRN (13:52)
[2018-04-12] MEDS ORDERED: LEVOTHYROXINE NA 75 MCG TABLET (FP) PO SCH (17:00)
[2018-04-12] MEDS ORDERED: chlordiazePOXIDE HCL 25 MG CAPSULE PO ONE (17:00)
--- NOTE | 2018-04-12 18:01 | PN ---
BHS Progress Note Note: abnormal EKG, sinus tachycardia increase fluids repeat EKG in the AM
[2018-04-12] MEDS: chlordiazePOXIDE HCL 25 MG CAPSULE PO SCH ×2 (18:16→22:05)
[2018-04-12] MEDS: LISINOPRIL 10 MG TABLET (FP) PO SCH (18:16)
[2018-04-12] MEDS: amLODIPine BESYLATE 10 MG TABLET (FP) PO SCH (18:16)
[2018-04-12] MEDS: LEVOTHYROXINE NA 25 MCG TABLET (FP) PO SCH (18:17)
[2018-04-12] MEDS: MELATONIN 5 MG TABLETS PO PRN (22:05)
[2018-04-12] MEDS: THIAMINE HCL 100 MG TABLET (FP) PO SCH (22:05)
[2018-04-13] MEDS: chlordiazePOXIDE HCL 25 MG CAPSULE PO SCH ×4 (05:43→22:08)
[2018-04-13] MEDS: LEVOTHYROXINE NA 25 MCG TABLET (FP) PO SCH (06:25)
--- NOTE | 2018-04-13 07:54 | CONSULT ---
[facility] Psychiatric Consult - Data Date of interview: 04/13/18 Admission source: Self-referred Identifying data: Mr Maravilla is a 57 years old single male, father of 3 children, unemployed on SSD, domiciled seeking detox treatment for alcohol Substance Abuse History: Reports history of alcohol use. Refer to addiction counselor's summary for further information Medical History: Significant for COPD, hypertension, dyslipidemia, hypothyroidism, alcohol-related seizures, borderline diabetes mellitus and a history of surgeries (abdominal surgery for diverticulisis, umbilical hernia repair and fracture left ankle). smokes cigareted 1 ppd Psychiatric History: Reports that his first psychiatric contact was at age 8 when he was admitted to [facility] for depression and started on medication. Reports multiple subsequent admissions to various facilities including [facility] and most recently [facility] 6 months ago for depression. Reports history of sporadic adherence to medications. He is currently prescribed Zoloft 100 mg po daily and Trazadone 150 mg po HS. Told medical underwriter that he gets his medications thro ED or his primary care physician. Reports one prior suicidal attempt in 2014 by jumping in front of a bus and was admitted to [facility]. At present repots feeling fine but sleeping poorly Physical/Sexual Abuse/Trauma History: Denies history of emotional; physical or sexual abuse as well as DV relationship. No service Additional Comment: Denies criminal history Mental Status Exam - Mental Status Exam Alert and Oriented to: Time, Place, Person Cognitive Function: Fair Patient Appearance: Well Groomed Mood: Hopeful, Euthymic Patient Behavior: Cooperative Speech Pattern: Clear Voice Loudness: Normal Thought Process: Intact, Goal Oriented Thought Disorder: Not Present Hallucinations: Denies Suicidal Ideation: Denies Homicidal Ideation: Denies Insight/Judgement: Poor Sleep: Poorly Appetite: Fair Muscle strength/Tone: Rigidity Gait/Station: Normal Psychiatric Findings - Problem List ([place] 1, 2,3) (1) MDD (major depressive disorder), recurrent episode, moderate Current Visit: No Status: Chronic (2) Alcohol-induced sleep disorder Current Visit: Yes Status: Acute (3) Alcohol dependence with uncomplicated withdrawal Current Visit: Yes Status: Acute (4) Nicotine dependence Current Visit: Yes Status: Chronic Qualifiers: Nicotine product type: cigarettes Substance use status: uncomplicated Qualified Code(s): F17.210 - Nicotine dependence, cigarettes, uncomplicated (5) Abdominal hernia Current Visit: Yes Status: Resolved Qualifiers: Hernia type: ventral Obstruction and gangrene presence: without obstruction or gangrene Qualified Code(s): K43.9 - Ventral hernia without obstruction or gangrene (6) Seizure Current Visit: Yes Status: Resolved (7) COPD (chronic obstructive pulmonary disease) Current Visit: Yes Status: Chronic Qualifiers: COPD type: unspecified COPD Qualified Code(s): J44.9 - Chronic obstructive pulmonary disease, unspecified (8) Diverticulitis Current Visit: Yes Status: Chronic Qualifiers: Diverticulitis site: unspecified part of intestinal tract Diverticulitis bleeding: unspecified bleeding status Diverticulitis complication: unspecified complication status Qualified Code(s): K57.92 - Diverticulitis of intestine, part unspecified, without perforation or abscess without bleeding (9) Hypertension Current Visit: Yes Status: Chronic Qualifiers: Hypertension type: essential hypertension Qualified Code(s): I10 - Essential (primary) hypertension (10) Hypothyroidism Current Visit: Yes Status: Chronic Qualifiers: Hypothyroidism type: unspecified Qualified Code(s): E03.9 - Hypothyroidism , unspecified (11) Type 2 diabetes mellitus Current Visit: No Status: Chronic Qualifiers: Diabetes mellitus fci insulin use: unspecified intermediate card tender insulin use status Diabetes mellitus complication status: without complication Qualified Code(s): E11.9 - Type 2 diabetes mellitus without complications - Initial Treatment Plan Initial Treatment Plan: 1) Continue Zoloft 100 mg po daily and Trazadone 150 mg po HS. 2) Continue inpatient detoxification
[2018-04-13] MEDS: amLODIPine BESYLATE 10 MG TABLET (FP) PO SCH (10:12)
[2018-04-13] MEDS: LISINOPRIL 10 MG TABLET (FP) PO SCH (10:12)
[2018-04-13] MEDS: PRENATAL VITAMINS W/ FOLIC ACID TABLET (FP) PO SCH (10:12)
[2018-04-13 11:04] LABS: URINE APPEARANCE TURBID; URINE BILIRUBIN NEGATIVE (<2.0 mg/dL); URINE BLOOD NEGATIVE (NEGATIVE); URINE COLOR YELLOW; URINE GLUCOSE (UA) NEGATIVE (NEGATIVE); URINE KETONE NEGATIVE (NEGATIVE); URINE LEUK ESTERASE NEGATIVE (NEGATIVE); URINE NITRITE NEGATIVE (NEGATIVE); URINE PROTEIN NEGATIVE (NEGATIVE); URINE UROBILINOGEN NEGATIVE mg/dL (0.2-1.0)
[2018-04-13 11:07] LABS: CHLORIDE 105 mmol/L (98-107); HEMATOCRIT 43.6 % (35.4-49); HEMOGLOBIN 14.7 GM/dL (11.7-16.9); MCH 33.1 pg (25.7-33.7); MCHC 33.7 g/dl (32.0-35.9); MEAN CELL VOLUME 98.3 fl (80-96); PLATELET COUNT 294 K/MM3 (134-434); POTASSIUM 4.1 mmol/L (3.5-5.1); RBC 4.43 M/mm3 (4.00-5.60); RDW 15.4 % (11.9-15.9); SODIUM 141 mmol/L (136-145); WHITE BLOOD COUNT 8.9 K/mm3 (4.0-10.0)
[2018-04-13] MEDS: SERTRALINE HCL 50 MG TABLET (FP) PO SCH (11:24)
[2018-04-13 11:25] LABS: ALBUMIN 3.5 g/dl (3.4-5.0); ALK PHOS 94 U/L (45-117); ANION GAP 7 (8-16); BILIRUBIN,TOTAL 0.2 mg/dL (0.2-1.0); BLOOD UREA NITROGEN 18 mg/dL (7-18); CALCIUM 8.9 mg/dL (8.5-10.1); CO2 29 mmol/L (21-32); CREATININE 0.7 mg/dL (0.7-1.3); GLUCOSE,RANDOM 102 mg/dL (74-106); SGOT/AST 15 U/L (15-37); SGPT/ALT 24 U/L (12-78); TOT PROT 6.7 g/dl (6.4-8.2)
--- NOTE | 2018-04-13 15:37 | PN ---
[facility] CIWA - CIWA Score Nausea/Vomitin-No Nausea/No Vomiting Muscle Tremors: 4-Moderate,w/Arms Extend Anxiety: 4-Mod. Anxious/Guarded Agitation: 2 Paroxysmal Sweats: No Perspiration Orientation: 0-Oriented Tacttile Disturbances: 3-Moderate Itch/Numb/Burn Auditory Disturbances: 3-Moderate Harsh/Frighten Visual Disturbances: 0-None Headache: 0-None Present CIWA-Ar Total Score: 16 BHS Progress Note (SOAP) Subjective: Interrupted Sleep, Tremors, Fatigue, Anxious. Objective: PATIENT A & O X 3, OBSERVED AMBULATING ON UNIT. NO ACUTE DISTRESS. 04/13/18 15:35 Vital Signs Temperature 97.5 F L 04/13/18 09:35 Pulse Rate 94 H 04/13/18 14:30 Respiratory Rate 91 H 04/13/18 13:11 Blood Pressure 136/89 04/13/18 13:11 O2 Sat by Pulse Oximetry (%) Laboratory Tests 04/13/18 04/13/18 04/13/18 07:40 07:40 07:40 WBC 8.9 D RBC 4.43 Hgb 14.7 Hct 43.6 MCV 98.3 H MCH 33.1 MCHC 33.7 RDW 15.4 Plt Count 294 D MPV 9.0 Sodium 141 Potassium 4.1 D Chloride 105 Carbon Dioxide 29 Anion Gap 7 L BUN 18 Creatinine 0.7 Creat Clearance w eGFR > 60 Random Glucose 102 Calcium 8.9 Total Bilirubin 0.2 D AST 15 D ALT 24 D Alkaline Phosphatase 94 Total Protein 6.7 Albumin 3.5 Urine Color Urine Appearance Urine pH Ur Specific [place] Urine Protein Urine Glucose (UA) Urine Ketones Urine Blood Urine Nitrite Urine Bilirubin Urine Urobilinogen Ur Leukocyte Esterase RPR Titer Nonreactive 04/13/18 08:15 WBC RBC Hgb Hct MCV MCH MCHC RDW Plt Count MPV Sodium Potassium Chloride Carbon Dioxide Anion Gap BUN Creatinine Creat Clearance w eGFR Random Glucose Calcium Total Bilirubin AST ALT Alkaline Phosphatase Total Protein Albumin Urine Color Yellow Urine Appearance Turbid Urine pH 5.0 Ur Specific [place] 1.028 Urine Protein Negative Urine Glucose (UA) Negative Urine Ketones Negative Urine Blood Negative Urine Nitrite Negative Urine Bilirubin Negative Urine Urobilinogen Negative Ur Leukocyte Esterase Negative RPR Titer LABS NOTED. Assessment: 04/13/18 15:36 WITHDRAWAL SYMPTOMS. Plan: CONTINUE DETOX.
[2018-04-13] MEDS: traZODone HCL 50 MG TABLET (FP) PO SCH (22:08)
[2018-04-13] MEDS: THIAMINE HCL 100 MG TABLET (FP) PO SCH (22:08)
[2018-04-13] MEDS: MELATONIN 5 MG TABLETS PO PRN (22:09)
--- NOTE | 2018-04-13 22:40 | EKG ---
Test Reason : Blood Pressure : / mmHG Vent. Rate : 082 BPM Atrial Rate : 082 BPM P-R Int : 156 ms QRS Dur : 088 ms QT Int : 398 ms P-R-T Axes : 065 054 053 degrees QTc Int : 464 ms NORMAL SINUS RHYTHM NORMAL ECG WHEN COMPARED WITH ECG OF 12-APR-2018 17:52, NO SIGNIFICANT CHANGE WAS FOUND Confirmed by RUI CORADO MD ([id number]) on 04/13/2018 10:40:41 PM Referred By: Confirmed By:RUI CORADO MD
--- NOTE | 2018-04-13 22:43 | EKG ---
Test Reason : Blood Pressure : / mmHG Vent. Rate : 102 BPM Atrial Rate : 102 BPM P-R Int : 146 ms QRS Dur : 086 ms QT Int : 362 ms P-R-T Axes : 067 054 058 degrees QTc Int : 471 ms SINUS TACHYCARDIA MINIMAL VOLTAGE CRITERIA FOR LVH, MAY BE NORMAL VARIANT BORDERLINE ECG WHEN COMPARED WITH ECG OF 23-MAR-2017 18:27, NO SIGNIFICANT CHANGE WAS FOUND Confirmed by RUI CORADO MD ([id number]) on 04/13/2018 10:42:31 PM Referred By: Confirmed By:RUI CORADO MD
[2018-04-14] MEDS: chlordiazePOXIDE HCL 25 MG CAPSULE PO SCH ×2 (05:52→10:07)
[2018-04-14] MEDS: LEVOTHYROXINE NA 25 MCG TABLET (FP) PO SCH (06:16)
--- NOTE | 2018-04-14 09:56 | PN ---
S CIWA - CIWA Score Nausea/Vomitin Muscle Tremors: 3 Anxiety: 3 Agitation: 2 Paroxysmal Sweats: 2 Orientation: 0-Oriented Tacttile Disturbances: 0-None Auditory Disturbances: 0-None Visual Disturbances: 0-None Headache: 0-None Present CIWA-Ar Total Score: 12 BHS Progress Note (SOAP) Subjective: Sweats Sleep disturbance Objective: 04/14/18 09:54 In bathroom, shaving A & O x 3 Laboratory Last Values WBC 8.9 K/mm3 (4.0-10.0) D 04/13/18 07:40 RBC 4.43 M/mm3 (4.00-5.60) 04/13/18 07:40 Hgb 14.7 GM/dL (11.7-16.9) 04/13/18 07:40 Hct 43.6 % (35.4-49) 04/13/18 07:40 MCV 98.3 fl (80-96) H 04/13/18 07:40 MCH 33.1 pg (25.7-33.7) 04/13/18 07:40 MCHC 33.7 g/dl (32.0-35.9) 04/13/18 07:40 RDW 15.4 % (11.9-15.9) 04/13/18 07:40 Plt Count 294 K/MM3 (134-434) D 04/13/18 07:40 MPV 9.0 fl (7.5-11.1) 04/13/18 07:40 Sodium 141 mmol/L (136-145) 04/13/18 07:40 Potassium 4.1 mmol/L (3.5-5.1) D 04/13/18 07:40 Chloride 105 mmol/L (98-107) 04/13/18 07:40 Carbon Dioxide 29 mmol/L (21-32) 04/13/18 07:40 Anion Gap 7 (8-16) L 04/13/18 07:40 BUN 18 mg/dL (7-18) 04/13/18 07:40 Creatinine 0.7 mg/dL (0.7-1.3) 04/13/18 07:40 Creat Clearance w eGFR > 60 (>60) 04/13/18 07:40 Random Glucose 102 mg/dL (74-106) 04/13/18 07:40 Calcium 8.9 mg/dL (8.5-10.1) 04/13/18 07:40 Total Bilirubin 0.2 mg/dL (0.2-1.0) D 04/13/18 07:40 AST 15 U/L (15-37) D 04/13/18 07:40 ALT 24 U/L (12-78) D 04/13/18 07:40 Alkaline Phosphatase 94 U/L (45-117) 04/13/18 07:40 Total Protein 6.7 g/dl (6.4-8.2) 04/13/18 07:40 Albumin 3.5 g/dl (3.4-5.0) 04/13/18 07:40 Urine Color Yellow 04/13/18 08:15 Urine Appearance Turbid 04/13/18 08:15 Urine pH 5.0 (5.0-8.0) 04/13/18 08:15 Ur Specific [place] 1.028 (1.001-1.035) 04/13/18 08:15 Urine Protein Negative (NEGATIVE) 04/13/18 08:15 Urine Glucose (UA) Negative (NEGATIVE) 04/13/18 08:15 Urine Ketones Negative (NEGATIVE) 04/13/18 08:15 Urine Blood Negative (NEGATIVE) 04/13/18 08:15 Urine Nitrite Negative (NEGATIVE) 04/13/18 08:15 Urine Bilirubin Negative (<2.0 mg/dL) 04/13/18 08:15 Urine Urobilinogen Negative mg/dL (0.2-1.0) 04/13/18 08:15 Ur Leukocyte Esterase Negative (NEGATIVE) 04/13/18 08:15 RPR Titer Nonreactive (NONREACTIVE) 04/13/18 07:40 Vital Signs Period Temp Pulse Resp BP Sys/Hope Pulse Ox Last 24 Hr 96.8 F-98.6 F 68-96 18-91 127-149/81-98 VSS Assessment: 04/14/18 09:55 withdrawal sx Plan: continue detox
[2018-04-14] MEDS: amLODIPine BESYLATE 10 MG TABLET (FP) PO SCH (10:07)
[2018-04-14] MEDS: LISINOPRIL 10 MG TABLET (FP) PO SCH (10:07)
[2018-04-14] MEDS: SERTRALINE HCL 50 MG TABLET (FP) PO SCH (10:07)
[2018-04-14] MEDS: PRENATAL VITAMINS W/ FOLIC ACID TABLET (FP) PO SCH (10:07)
[2018-04-14] MEDS: chlordiazePOXIDE 5 MG CAPSULE PO SCH ×2 (17:31→22:00)
[2018-04-14] MEDS: traZODone HCL 50 MG TABLET (FP) PO SCH (22:00)
[2018-04-14] MEDS: THIAMINE HCL 100 MG TABLET (FP) PO SCH (22:00)
[2018-04-14] MEDS: MELATONIN 5 MG TABLETS PO PRN (22:01)
[2018-04-15] MEDS: chlordiazePOXIDE 5 MG CAPSULE PO SCH ×2 (05:44→10:03)
[2018-04-15] MEDS: LEVOTHYROXINE NA 25 MCG TABLET (FP) PO SCH (06:06)
[2018-04-15] MEDS: amLODIPine BESYLATE 10 MG TABLET (FP) PO SCH (10:03)
[2018-04-15] MEDS: PRENATAL VITAMINS W/ FOLIC ACID TABLET (FP) PO SCH (10:03)
[2018-04-15] MEDS: SERTRALINE HCL 50 MG TABLET (FP) PO SCH (10:03)
[2018-04-15] MEDS: LISINOPRIL 10 MG TABLET (FP) PO SCH (10:03)
--- NOTE | 2018-04-15 11:55 | PN ---
BHS Progress Note (SOAP) Subjective: Tremors, Sweating, Fatigue. Objective: PATIENT A & O X 3, OBSERVED AMBULATING ON UNIT. NO ACUTE DISTRESS. 04/15/18 11:53 Vital Signs Temperature 98.1 F 04/15/18 09:02 Pulse Rate 87 04/15/18 09:02 Respiratory Rate 18 04/15/18 09:02 Blood Pressure 142/94 04/15/18 09:02 O2 Sat by Pulse Oximetry (%) Laboratory Tests 04/13/18 04/13/18 04/13/18 07:40 07:40 07:40 WBC 8.9 D RBC 4.43 Hgb 14.7 Hct 43.6 MCV 98.3 H MCH 33.1 MCHC 33.7 RDW 15.4 Plt Count 294 D MPV 9.0 Sodium 141 Potassium 4.1 D Chloride 105 Carbon Dioxide 29 Anion Gap 7 L BUN 18 Creatinine 0.7 Creat Clearance w eGFR > 60 Random Glucose 102 Calcium 8.9 Total Bilirubin 0.2 D AST 15 D ALT 24 D Alkaline Phosphatase 94 Total Protein 6.7 Albumin 3.5 Urine Color Urine Appearance Urine pH Ur Specific [place] Urine Protein Urine Glucose (UA) Urine Ketones Urine Blood Urine Nitrite Urine Bilirubin Urine Urobilinogen Ur Leukocyte Esterase RPR Titer Nonreactive 04/13/18 08:15 WBC RBC Hgb Hct MCV MCH MCHC RDW Plt Count MPV Sodium Potassium Chloride Carbon Dioxide Anion Gap BUN Creatinine Creat Clearance w eGFR Random Glucose Calcium Total Bilirubin AST ALT Alkaline Phosphatase Total Protein Albumin Urine Color Yellow Urine Appearance Turbid Urine pH 5.0 Ur Specific [place] 1.028 Urine Protein Negative Urine Glucose (UA) Negative Urine Ketones Negative Urine Blood Negative Urine Nitrite Negative Urine Bilirubin Negative Urine Urobilinogen Negative Ur Leukocyte Esterase Negative RPR Titer LABS NOTED. Assessment: 04/15/18 11:54 WITHDRAWAL SYMPTOMS. Plan: CONTINUE DETOX. INCREASE DAILY PO FLUID INTAKE. PATIENT SCHEDULED FOR D/C TOMORROW.
[2018-04-15] MEDS ORDERED: chlordiazePOXIDE 5 MG CAPSULE ONE (16:11)
[2018-04-15] MEDS: chlordiazePOXIDE HCL 10 MG CAPSULE PO SCH ×2 (17:04→22:05)
[2018-04-15] MEDS: THIAMINE HCL 100 MG TABLET (FP) PO SCH (22:05)
[2018-04-15] MEDS: traZODone HCL 50 MG TABLET (FP) PO SCH (22:05)
[2018-04-15] MEDS: MELATONIN 5 MG TABLETS PO PRN (22:06)
[2018-04-16] MEDS: chlordiazePOXIDE HCL 10 MG CAPSULE PO SCH ×2 (06:07→10:57)
[2018-04-16] MEDS: LEVOTHYROXINE NA 25 MCG TABLET (FP) PO SCH (07:30)
--- NOTE | 2018-04-16 08:41 | DS ---
[facility] Detox Discharge Summary Admission Date: 04/12/18 Discharge Date: 04/17/18 - History Present History: Alcohol Dependence Additional Comments: PT REPORTS HE HAS A PRIMARY CARE PROVIDER AND [facility] WHO COME TO HIS RESIDENCE. PT HAS OWN MEDS AT HOME. PT ENCOURAGED TO GO TO [facility] [place] [facility] Pertinent Past History: PLEASE SEE DX BELOW - Physical Exam Results Vital Signs: Vital Signs Temperature 96.4 F L 04/16/18 06:12 Pulse Rate 76 04/16/18 06:12 Respiratory Rate 16 04/16/18 06:12 Blood Pressure 122/82 04/16/18 06:12 O2 Sat by Pulse Oximetry (%) Pertinent Admission Physical Exam Findings: WITHDRAWAL SX Laboratory Tests 04/13/18 04/13/18 04/13/18 07:40 07:40 07:40 WBC 8.9 D RBC 4.43 Hgb 14.7 Hct 43.6 MCV 98.3 H MCH 33.1 MCHC 33.7 RDW 15.4 Plt Count 294 D MPV 9.0 Sodium 141 Potassium 4.1 D Chloride 105 Carbon Dioxide 29 Anion Gap 7 L BUN 18 Creatinine 0.7 Creat Clearance w eGFR > 60 Random Glucose 102 Calcium 8.9 Total Bilirubin 0.2 D AST 15 D ALT 24 D Alkaline Phosphatase 94 Total Protein 6.7 Albumin 3.5 Urine Color Urine Appearance Urine pH Ur Specific [place] Urine Protein Urine Glucose (UA) Urine Ketones Urine Blood Urine Nitrite Urine Bilirubin Urine Urobilinogen Ur Leukocyte Esterase RPR Titer Nonreactive 04/13/18 08:15 WBC RBC Hgb Hct MCV MCH MCHC RDW Plt Count MPV Sodium Potassium Chloride Carbon Dioxide Anion Gap BUN Creatinine Creat Clearance w eGFR Random Glucose Calcium Total Bilirubin AST ALT Alkaline Phosphatase Total Protein Albumin Urine Color Yellow Urine Appearance Turbid Urine pH 5.0 Ur Specific [place] 1.028 Urine Protein Negative Urine Glucose (UA) Negative Urine Ketones Negative Urine Blood Negative Urine Nitrite Negative Urine Bilirubin Negative Urine Urobilinogen Negative Ur Leukocyte Esterase Negative RPR Titer - Treatment Hospital Course: Detox Protocol Followed, Detoxed Safely, Responded well, Discharged Condition Good Patient has Accepted a Rehab Referral to: [facility] [place] - Medication Discharge Medications: Ambulatory Orders Levothyroxine [Synthroid -] 75 mcg PO DAILY #30 tablet 08/21/15 Amlodipine Besylate [Norvasc -] 10 mg PO DAILY 04/12/18 Lisinopril [Prinivil] 10 mg PO DAILY 04/12/18 Sertraline HCl [Zoloft] 100 mg PO DAILY #30 tablet 04/13/18 traZODone HCL [Desyrel -] 150 mg PO HS #30 tablet 04/13/18 - Diagnosis (1) Alcohol dependence with uncomplicated withdrawal Current Visit: Yes Status: Acute (2) COPD (chronic obstructive pulmonary disease) Current Visit: Yes Status: Chronic Qualifiers: COPD type: unspecified COPD Qualified Code(s): J44.9 - Chronic obstructive pulmonary disease, unspecified (3) History of bowel diversion surgery Current Visit: Yes Status: Chronic (4) Hypertension Current Visit: Yes Status: Chronic Qualifiers: Hypertension type: essential hypertension Qualified Code(s): I10 - Essential (primary) hypertension (5) Hypothyroidism Current Visit: Yes Status: Chronic Qualifiers: Hypothyroidism type: unspecified Qualified Code(s): E03.9 - Hypothyroidism , unspecified (6) Nicotine dependence Current Visit: Yes Status: Acute Qualifiers: Nicotine product type: cigarettes Substance use status: in withdrawal Qualified Code(s): F17.213 - Nicotine dependence, cigarettes, with withdrawal (7) Cocaine dependence Current Visit: Yes Status: Acute Qualifiers: Substance use status: uncomplicated Qualified Code(s): F14.20 - Cocaine dependence, uncomplicated - AMA Did Patient Leave Against Medical Advice: No
--- NOTE | 2018-04-16 08:52 | PN ---
BHS Progress Note (SOAP) Subjective: DETOX COMPLETED. ALERT O X 3. PT WILL BE KEPT TODAY FOR MONITORING. PT WAS UNSTABLE PER [employer] [facility] STAFF WHO REPORTED PT WAS WEAK UNABLE TO STAND AND WAS ASSISTED WITH HYGIENE/ADLs. PT REPORTS HE STARTED FEELING TIREDNESS/ WEAKNESS TO FEET WHILE STANDING SINCE X 2 DAYS. Objective: Laboratory Tests 04/13/18 04/13/18 04/13/18 07:40 07:40 07:40 WBC 8.9 D RBC 4.43 Hgb 14.7 Hct 43.6 MCV 98.3 H MCH 33.1 MCHC 33.7 RDW 15.4 Plt Count 294 D MPV 9.0 Sodium 141 Potassium 4.1 D Chloride 105 Carbon Dioxide 29 Anion Gap 7 L BUN 18 Creatinine 0.7 Creat Clearance w eGFR > 60 Random Glucose 102 Calcium 8.9 Total Bilirubin 0.2 D AST 15 D ALT 24 D Alkaline Phosphatase 94 Total Protein 6.7 Albumin 3.5 Urine Color Urine Appearance Urine pH Ur Specific [place] Urine Protein Urine Glucose (UA) Urine Ketones Urine Blood Urine Nitrite Urine Bilirubin Urine Urobilinogen Ur Leukocyte Esterase RPR Titer Nonreactive 04/13/18 08:15 WBC RBC Hgb Hct MCV MCH MCHC RDW Plt Count MPV Sodium Potassium Chloride Carbon Dioxide Anion Gap BUN Creatinine Creat Clearance w eGFR Random Glucose Calcium Total Bilirubin AST ALT Alkaline Phosphatase Total Protein Albumin Urine Color Yellow Urine Appearance Turbid Urine pH 5.0 Ur Specific [place] 1.028 Urine Protein Negative Urine Glucose (UA) Negative Urine Ketones Negative Urine Blood Negative Urine Nitrite Negative Urine Bilirubin Negative Urine Urobilinogen Negative Ur Leukocyte Esterase Negative RPR Titer 04/16/18 11:16 Vital Signs 04/16/18 04/16/18 04/16/18 03:30 06:12 09:19 Temperature 96.4 F L 96 F L Pulse Rate 76 90 Respiratory 18 16 20 Rate Blood Pressure 122/82 111/74 Assessment: 04/16/18 08:52 SLIGHT LETHARGY/UNSTABLE ON FEET Plan: HOLD DISCHARGING PT TODAY MONITOR STATUS AND RE-EVALUATE FOR D/C IN A.M.
[2018-04-16] MEDS: PRENATAL VITAMINS W/ FOLIC ACID TABLET (FP) PO SCH (10:50)
[2018-04-16] MEDS: amLODIPine BESYLATE 10 MG TABLET (FP) PO SCH (10:51)
[2018-04-16] MEDS: LISINOPRIL 10 MG TABLET (FP) PO SCH (10:52)
[2018-04-16] MEDS: SERTRALINE HCL 50 MG TABLET (FP) PO SCH (10:52)
[2018-04-16] MEDS: THIAMINE HCL 100 MG TABLET (FP) PO SCH (22:06)
[2018-04-16] MEDS: traZODone HCL 50 MG TABLET (FP) PO SCH (22:06)
[2018-04-16] MEDS: MELATONIN 5 MG TABLETS PO PRN (22:07)
[2018-04-17 06:02] VITALS: PULSE 80
[2018-04-17] MEDS: LEVOTHYROXINE NA 25 MCG TABLET (FP) PO SCH (07:10)
[2018-04-17 10:09] VITALS: BP 129/86; TEMP 96
[2018-04-17] MEDS: LISINOPRIL 10 MG TABLET (FP) PO SCH (10:19)
[2018-04-17] MEDS: PRENATAL VITAMINS W/ FOLIC ACID TABLET (FP) PO SCH (10:19)
[2018-04-17] MEDS: SERTRALINE HCL 50 MG TABLET (FP) PO SCH (10:19)
[2018-04-17] MEDS: amLODIPine BESYLATE 10 MG TABLET (FP) PO SCH (10:19)
--- NOTE | 2018-04-17 10:42 | PN ---
[facility] Progress Note (SOAP) Subjective: ALERT O X 3. PT REPORTS STRONGER AND PT IS OOB AMBULATING WITH STAEDY GAIT. SELF CARE DONE BY HIMSELF THIS MORNING. PT STATES HE WILL BE PICKING UP HIS HOME KEYS AT [address]/ [address] LOCATION AND HEAD BACK TO HIS HOME NEARBY. PT STATES HE IS MANAGED BY [facility] AND A DOCTOR COMES TO SEE HIM AT HOME( DOES NOT REMEMBER THE NAME OF HIS DOCTOR). PT IS ALERT O X 3. DECLINED REHAB BUT OPEN TO SELF HELP TX PROGRAMS Objective: 04/17/18 10:45 Vital Signs 04/17/18 04/17/18 04/17/18 03:30 06:02 06:30 Temperature 96.1 F L Pulse Rate 80 Respiratory 20 18 18 Rate Blood Pressure 130/84 04/17/18 10:08 Temperature 96.0 F L Pulse Rate 80 Respiratory 16 Rate Blood Pressure 129/86 Laboratory Tests 04/13/18 04/13/18 04/13/18 07:40 07:40 07:40 WBC 8.9 D RBC 4.43 Hgb 14.7 Hct 43.6 MCV 98.3 H MCH 33.1 MCHC 33.7 RDW 15.4 Plt Count 294 D MPV 9.0 Sodium 141 Potassium 4.1 D Chloride 105 Carbon Dioxide 29 Anion Gap 7 L BUN 18 Creatinine 0.7 Creat Clearance w eGFR > 60 Random Glucose 102 Calcium 8.9 Total Bilirubin 0.2 D AST 15 D ALT 24 D Alkaline Phosphatase 94 Total Protein 6.7 Albumin 3.5 Urine Color Urine Appearance Urine pH Ur Specific [place] Urine Protein Urine Glucose (UA) Urine Ketones Urine Blood Urine Nitrite Urine Bilirubin Urine Urobilinogen Ur Leukocyte Esterase RPR Titer Nonreactive 04/13/18 08:15 WBC RBC Hgb Hct MCV MCH MCHC RDW Plt Count MPV Sodium Potassium Chloride Carbon Dioxide Anion Gap BUN Creatinine Creat Clearance w eGFR Random Glucose Calcium Total Bilirubin AST ALT Alkaline Phosphatase Total Protein Albumin Urine Color Yellow Urine Appearance Turbid Urine pH 5.0 Ur Specific [place] 1.028 Urine Protein Negative Urine Glucose (UA) Negative Urine Ketones Negative Urine Blood Negative Urine Nitrite Negative Urine Bilirubin Negative Urine Urobilinogen Negative Ur Leukocyte Esterase Negative RPR Titer Assessment: 04/17/18 10:46 MEDICALLY STABLE Plan: D/C PT TODAY
== END 2018-04-17 11:00 | disposition home or self-care (01) | DRG 896 ==
LOC: YASAS 09:01 → Y3N 16:46
PROVIDERS: ADMIT Surgery; ATTEND Surgery
PROC: HZ2ZZZZ Detoxification Services for Substance Abuse Treatment (ICD-10-PCS; principal; 2018-04-12)
DX: F10.230 Alcohol dependence with withdrawal, uncomplicated (principal); K57.91 Diverticulosis of intestine, part unspecified, without perforation or abscess with bleeding; F14.20 Cocaine dependence, uncomplicated; F33.1 Major depressive disorder, recurrent, moderate; F10.282 Alcohol dependence with alcohol-induced sleep disorder; F17.213 Nicotine dependence, cigarettes, with withdrawal; I10 Essential (primary) hypertension; J44.9 Chronic obstructive pulmonary disease, unspecified; E11.9 Type 2 diabetes mellitus without complications; E03.9 Hypothyroidism, unspecified; E78.5 Hyperlipidemia, unspecified; R53.83 Other fatigue; R26.81 Unsteadiness on feet; R00.0 Tachycardia, unspecified; R94.31 Abnormal electrocardiogram [ECG] [EKG]; Z90.49 Acquired absence of other specified parts of digestive tract; Z86.69 Personal history of other diseases of the nervous system and sense organs; Z91.14 Patient's other noncompliance with medication regimen
CPT/HCPCS: 36415; 80053; 81003; 85027; 86593; 93005; 93010

== ENCOUNTER 2019-03-02 18:03 | Inpatient (IN) | payer BC ==
[2019-03-02 23:09] VITALS: BMI 26.9
--- NOTE | 2019-03-02 23:40 | HP ---
CIWA Score Nausea/Vomitin-Mild Nausea/No Vomiting Muscle Tremors: 3 Anxiety: 4-Mod. Anxious/Guarded Agitation: 0-Normal Activity Paroxysmal Sweats: 3 Orientation: 1-Uncertain about Date Tacttile Disturbances: 0-None Auditory Disturbances: 0-None Visual Disturbances: 0-None Headache: 4-Moderately Severe CIWA-Ar Total Score: 16 - Admission Criteria OASAS Guidelines: Admission for Medically Managed Detox: Requires at least one of the followin. CIWA greater than 12 2. Seizures within the past 24 hours 3. Delirium tremens within the past 24 hours 4. Hallucinations within the past 24 hours 5. Acute intervention needed for co occurring medical disorder 6. Acute intervention needed for co occurring psychiatric disorder 7. Severe withdrawal that cannot be handled at a lower level of care (continued vomiting, continued diarrhea, abnormal vital signs) requiring intravenous medication and/or fluids 8. Admission ROS [facility] - [facility] Chief Complaint: Alcohol withdrawal symptoms Allergies/Adverse Reactions: Allergies Allergy/AdvReac Type Severity Reaction Status Date / Time No Known Allergies Allergy Verified 03/02/19 23:12 History of Present Illness: 58 years old male with a long history of alcohol dependence is seeking admission to detox. Patient has been in previous detox and reports insignificant period of sobriety. He has medical history of hypothyroid, hyperlipidemia, hypertension, seizures, COPD and depression. He reports suicide attempt 40 years ago and denies suicidal ideation at this time. Exam Limitations: No Limitations - Ebola screening Have you traveled outside of the country in the last 21 days: No (N) Have you had contact with anyone from an Ebola affected area: No Do you have a fever: No - Review of Systems Constitutional: Chills, Loss of Appetite, Night Sweats, Changes in sleep EENT: reports: Sinus Pressure Respiratory: reports: No Symptoms reported Cardiac: reports: No Symptoms Reported GI: reports: Diarrhea (x 2), Poor Appetite, Poor Fluid Intake, Abdominal cramping : reports: No Symptoms Reported Musculoskeletal: reports: Back Pain Integumentary: reports: No Symptoms Reported, Dryness, Flushing Neuro: reports: Headache, Tremors Endocrine: reports: No Symptoms Reported Hematology: reports: No Symptoms Reported Psychiatric: reports: Mood/Affect Appropiate, Orientated x3, Anxious, Depressed Other Systems: Reviewed and Negative Patient History - Patient Medical History Hx Anemia: No Hx Asthma: No Hx Chronic Obstructive Pulmonary Disease (COPD): Yes (Not on medication) Hx Cancer: No Hx Cardiac Disorders: No Hx Congestive Heart Failure: No Hx Hypertension: Yes (Non compliant with medication) Hx Hypercholesterolemia: Yes (Not compliant with medication) Hx Pacemaker: No HX Cerebrovascular Accident: No Hx Seizures: Yes (Alcohol related Last 12/2018) Hx Dementia: No Hx Diabetes: No Hx Gastrointestinal Disorders: No Hx Liver Disease: No Hx Genitourinary Disorders: No Hx Sexually Transmitted Disorders: No Hx Renal Disease (ESRD): No Hx Thyroid Disease: Yes (Hypothyroid on meds. but poor adherance) Hx Human Immunodeficiency Virus (HIV): No (NEGATIVE HX last 08/26) Hx Hepatitis C: No Hx Depression: Yes (Not on medication) Hx Suicide Attempt: Yes (x1 40 YEARS AGO) Hx Bipolar Disorder: No Hx Schizophrenia: No - Patient Surgical History Past Surgical History: Yes Hx Neurologic Surgery: No Hx Cataract Extraction: No Hx Cardiac Surgery: No Hx Lung Surgery: No Hx Breast Surgery: No Hx Breast Biopsy: No Hx Abdominal Surgery: Yes (intestinal repair sx in 1999/ umbillical hernia repair) Hx Appendectomy: No Hx Cholecystectomy: No Hx Genitourinary Surgery: No Hx Section: No Hx Orthopedic Surgery: Yes (L ankle fx sx 20 years ago) Other Surgical History: surgery for diverticulitis Anesthesia Reaction: No - PPD History Previous Implant?: Yes Documented Results: Negative w/o proof Implanted On Prior R Admission?: Yes Date: 04/14/18 Results: 0MM PPD to be Administered?: Yes - Reproductive History Patient is a Female of Child Bearing Age (11 -55 yrs old): No (male) - Smoking Cessation Smoking history: Current every day smoker Have you smoked in the past 12 months: Yes Aproximately how many cigarettes per day: 20 Hx Chewing Tobacco Use: No Initiated information on smoking cessation: Yes 'Breaking Loose' booklet given: 03/02/19 - Substance & Tx. History Hx Alcohol Use: Yes Hx Substance Use: No Substance Use Type: Alcohol Hx Substance Use Treatment: Yes ([facility] January 2019) - Substances abused Alcohol Substance route: Oral Frequency: Daily Amount used: [place] [employer]A - 3 PINTS Age of first use: 8 Date of last use: 03/02/19 Family Disease History - Family Disease History Family Disease History: Heart Disease: Brother (two - living , one ETOH ), Other : Father (alcohol,), Mother (alcohol,), Brother, Sister (five - living ), Daughter (three - living - healthy) Admission Physical Exam [facility] - Vital Signs Vital Signs: Vital Signs - 24 hr 03/02/19 23:06 Temperature 96.7 F L Pulse Rate 97 H Respiratory 18 Rate Blood Pressure 143/85 - Physical General Appearance: Yes: Moderate Distress, Tremorous, Sweating, Anxious HEENTM: Yes: Normal ENT Inspection, Normal Voice, VALERIE Respiratory: Yes: Lungs Clear, Normal Breath Sounds Neck: Yes: Supple Breast: Yes: Within Normal Limits Cardiology: Yes: Tachycardia Abdominal: Yes: Normal Bowel Sounds Genitourinary: Yes: Within Normal Limits Back: Yes: Normal Inspection Musculoskeletal: Yes: Within Normal Limits Extremities: Yes: Within Normal Limits Neurological: Yes: Alert, Normal Mood/Affect Integumentary: Yes: Warm Lymphatic: Yes: Within Normal Limits - Diagnostic (1) Alcohol dependence with uncomplicated withdrawal Current Visit: No Status: Acute (2) COPD (chronic obstructive pulmonary disease) Current Visit: No Status: Chronic Qualifiers: COPD type: unspecified COPD Qualified Code(s): J44.9 - Chronic obstructive pulmonary disease, unspecified (3) Hypertension Current Visit: No Status: Chronic Qualifiers: Hypertension type: essential hypertension Qualified Code(s): I10 - Essential (primary) hypertension (4) Hypothyroidism Current Visit: No Status: Chronic Qualifiers: Hypothyroidism type: unspecified Qualified Code(s): E03.9 - Hypothyroidism , unspecified (5) Nicotine dependence Current Visit: No Status: Chronic Qualifiers: Nicotine product type: unspecified Substance use status: in withdrawal Qualified Code(s): F17.203 - Nicotine dependence unspecified, with withdrawal (6) Seizure Current Visit: No Status: Chronic (7) Abdominal hernia Current Visit: No Status: Resolved Qualifiers: Hernia type: ventral Obstruction and gangrene presence: without obstruction or gangrene Qualified Code(s): K43.9 - Ventral hernia without obstruction or gangrene (8) Hyperlipidemia Current Visit: Yes Status: Chronic Qualifiers: Hyperlipidemia type: other hyperlipidemia Qualified Code(s): E78.49 - Other hyperlipidemia; E78.4 - Other hyperlipidemia (9) Depression Current Visit: Yes Status: Chronic Cleared for Admission [facility] - Detox or Rehab [facility] Level of Care: Medically Managed Detox Regimen/Protocol: Librium Breathalyzer - Breathalyzer Breathalyzer: 0 Urine Drug Screen - Test Device Lot number: [id number] Expiration date: 10/10/20 - Control Is test valid?: Yes - Results Drug screen NEGATIVE: No Urine drug screen results: BZO-Benzodiazepines Inpatient Rehab Admission - Rehab Decision to Admit Inpatient rehab admission?: No
[2019-03-02] MEDS ORDERED: MAG HYDROX/AL HYDROX/SIMETH 30 ML UNIT-DOSE CUP PO PRN (23:55)
[2019-03-02] MEDS ORDERED: IBUPROFEN 400 MG TABLET (FP) PO PRN (23:55)
[2019-03-02] MEDS ORDERED: MAGNESIUM CITRATE 300 ML BOTTLE PO PRN (23:55)
[2019-03-02] MEDS ORDERED: hydrOXYzine PAMOATE 25 MG CAPSULE (FP) PO PRN (23:55)
[2019-03-02] MEDS ORDERED: chlordiazePOXIDE HCL 25 MG CAPSULE PO PRN (23:55)
[2019-03-02] MEDS ORDERED: MENTHOL/PHENOL 1 EACH UD MM PRN (23:55)
[2019-03-02] MEDS ORDERED: NICOTINE POLACRILEX 2 MG GUM BUC PRN (23:55)
[2019-03-02] MEDS ORDERED: MAGNESIUM HYDROX 2400MG/30ML ORAL SUSPENSION 30 ML CUP PO PRN (23:55)
[2019-03-02] MEDS ORDERED: ACETAMINOPHEN 325 MG TABLET (FP) PO PRN ×2 (23:55)
[2019-03-02] MEDS ORDERED: METHOCARBAMOL 500 MG TABLET PO PRN (23:55)
[2019-03-02] MEDS ORDERED: BISMUTH SUBSALICYLATE 524 MG/30 ML UD PO PRN (23:55)
[2019-03-03] MEDS: chlordiazePOXIDE HCL 25 MG CAPSULE PO SCH ×5 (01:35→22:16)
[2019-03-03] MEDS ORDERED: LEVOTHYROXINE NA 75 MCG TABLET (FP) PO SCH (07:00)
[2019-03-03] MEDS ORDERED: LEVOTHYROXINE NA 25 MCG TABLET (FP) PO SCH (07:39)
[2019-03-03] MEDS: LEVOTHYROXINE NA 25 MCG TABLET (FP) PO SCH (07:48)
[2019-03-03 10:06] LABS: HEMATOCRIT 42.1 % (35.4-49); HEMOGLOBIN 14.2 GM/dL (11.7-16.9); MCH 30.5 pg (25.7-33.7); MCHC 33.7 g/dl (32.0-35.9); MEAN CELL VOLUME 90.5 fl (80-96); MEAN PLT VOLUME 8.8 fl (7.5-11.1); PLATELET COUNT 259 K/MM3 (134-434); RBC 4.65 M/mm3 (4.00-5.60); RDW 14.8 % (11.9-15.9); WHITE BLOOD COUNT 9.8 K/mm3 (4.0-10.0)
[2019-03-03] MEDS: NIFEdipine E.R. 30 MG TABLET (FP) PO SCH (10:09)
[2019-03-03] MEDS: PRENATAL VITAMINS W/ FOLIC ACID TABLET (FP) PO SCH (10:09)
[2019-03-03] MEDS: ASPIRIN 81 MG CHEWABLE TABLETS PO SCH (10:09)
[2019-03-03] MEDS: NICOTINE 14 MG/24 HOURS TOPICAL PATCH TD SCH (10:10)
[2019-03-03 10:18] LABS: ALBUMIN 3.8 g/dl (3.4-5.0); ALK PHOS 93 U/L (45-117); ANION GAP 7 MMOL/L (8-16); BILIRUBIN,TOTAL 0.4 mg/dL (0.2-1); BLOOD UREA NITROGEN 14 mg/dL (7-18); CHLORIDE 102 mmol/L (98-107); CO2 29 mmol/L (21-32); CREATININE 0.6 mg/dL (0.55-1.3); GLUCOSE,RANDOM 72 mg/dL (74-106); POTASSIUM 3.8 mmol/L (3.5-5.1); SGOT/AST 22 U/L (15-37); SGPT/ALT 30 U/L (13-61); SODIUM 138 mmol/L (136-145); TOT PROT 7.1 g/dl (6.4-8.2)
--- NOTE | 2019-03-03 12:39 | EKG ---
Test Reason : Blood Pressure : / mmHG Vent. Rate : 072 BPM Atrial Rate : 072 BPM P-R Int : 156 ms QRS Dur : 092 ms QT Int : 408 ms P-R-T Axes : 065 059 058 degrees QTc Int : 446 ms NORMAL SINUS RHYTHM NORMAL ECG Confirmed by MD WINSTON, DERIK ([id number]) on 03/03/2019 12:38:56 PM Referred By: CLARICE PENA Confirmed By:DERIK MONTERO MD
--- NOTE | 2019-03-03 13:53 | PN ---
S CIWA - CIWA Score Nausea/Vomitin-No Nausea/No Vomiting Muscle Tremors: 3 Anxiety: 3 Agitation: 0-Normal Activity Paroxysmal Sweats: 2 Orientation: 0-Oriented Tacttile Disturbances: 0-None Auditory Disturbances: 0-None Visual Disturbances: 2-Mild Sensitivity Headache: 3-Moderate CIWA-Ar Total Score: 13 B[facility] Progress Note (SOAP) Subjective: Tremors, H/A, Seating, Stomach Cramping. Objective: PATIENT A & O X 3. IN NO ACUTE DISTRESS. PATIENT DENIES CHEST PAIN. 03/03/19 13:50 Vital Signs Temperature 96.4 F L 03/03/19 13:03 Pulse Rate 82 03/03/19 13:03 Respiratory Rate 18 03/03/19 13:03 Blood Pressure 134/91 03/03/19 13:03 O2 Sat by Pulse Oximetry (%) Laboratory Tests 03/03/19 03/03/19 03/03/19 07:00 07:00 07:00 WBC 9.8 RBC 4.65 Hgb 14.2 Hct 42.1 MCV 90.5 MCH 30.5 MCHC 33.7 RDW 14.8 Plt Count 259 MPV 8.8 Sodium 138 Potassium 3.8 Chloride 102 Carbon Dioxide 29 Anion Gap 7 L BUN 14 Creatinine 0.6 Creat Clearance w eGFR 137.90 Random Glucose 72 L Calcium 9.0 Total Bilirubin 0.4 AST 22 ALT 30 Alkaline Phosphatase 93 Total Protein 7.1 Albumin 3.8 RPR Titer Nonreactive LABS NOTED. 03/03/19 13:52 Assessment: 03/03/19 13:52 WITHDRAWAL SYMPTOMS. Plan: CONTINUE DETOX.
[2019-03-03] MEDS: MELATONIN 5 MG TABLETS PO PRN (22:16)
[2019-03-03] MEDS: THIAMINE HCL 100 MG TABLET (FP) PO SCH (22:16)
[2019-03-03] MEDS: ATORVASTATIN CA 80 MG TABLET (FP) PO SCH (22:16)
[2019-03-03] MEDS: DOCUSATE SODIUM 100 MG CAPSULE (FP) PO SCH (22:16)
[2019-03-04] MEDS: chlordiazePOXIDE HCL 25 MG CAPSULE PO SCH ×3 (05:11→17:16)
[2019-03-04] MEDS: LEVOTHYROXINE NA 25 MCG TABLET (FP) PO SCH (06:36)
--- NOTE | 2019-03-04 09:57 | PN ---
S CIWA - CIWA Score Nausea/Vomitin-Mild Nausea/No Vomiting Muscle Tremors: 3 Anxiety: 1-Mildly Anxious Agitation: 2 Paroxysmal Sweats: 1-Minimal Palms Moist Orientation: 1-Uncertain about Date Tacttile Disturbances: 0-None Auditory Disturbances: 0-None Visual Disturbances: 0-None Headache: 2-Mild CIWA-Ar Total Score: 11 S Progress Note (SOAP) Subjective: feeling better since taking procardia less headaches Objective: 03/04/19 09:58 Vital Signs Temperature 97.5 F L 03/04/19 09:26 Pulse Rate 90 03/04/19 09:26 Respiratory Rate 18 03/04/19 09:26 Blood Pressure 127/87 03/04/19 09:26 O2 Sat by Pulse Oximetry (%) Laboratory Last Values WBC 9.8 K/mm3 (4.0-10.0) 03/03/19 07:00 RBC 4.65 M/mm3 (4.00-5.60) 03/03/19 07:00 Hgb 14.2 GM/dL (11.7-16.9) 03/03/19 07:00 Hct 42.1 % (35.4-49) 03/03/19 07:00 MCV 90.5 fl (80-96) 03/03/19 07:00 MCH 30.5 pg (25.7-33.7) 03/03/19 07:00 MCHC 33.7 g/dl (32.0-35.9) 03/03/19 07:00 RDW 14.8 % (11.9-15.9) 03/03/19 07:00 Plt Count 259 K/MM3 (134-434) 03/03/19 07:00 MPV 8.8 fl (7.5-11.1) 03/03/19 07:00 Sodium 138 mmol/L (136-145) 03/03/19 07:00 Potassium 3.8 mmol/L (3.5-5.1) 03/03/19 07:00 Chloride 102 mmol/L (98-107) 03/03/19 07:00 Carbon Dioxide 29 mmol/L (21-32) 03/03/19 07:00 Anion Gap 7 MMOL/L (8-16) L 03/03/19 07:00 BUN 14 mg/dL (7-18) 03/03/19 07:00 Creatinine 0.6 mg/dL (0.55-1.3) 03/03/19 07:00 Creat Clearance w eGFR 137.90 (>60) 03/03/19 07:00 Random Glucose 72 mg/dL (74-106) L 03/03/19 07:00 Calcium 9.0 mg/dL (8.5-10.1) 03/03/19 07:00 Total Bilirubin 0.4 mg/dL (0.2-1) 03/03/19 07:00 AST 22 U/L (15-37) 03/03/19 07:00 ALT 30 U/L (13-61) 03/03/19 07:00 Alkaline Phosphatase 93 U/L (45-117) 03/03/19 07:00 Total Protein 7.1 g/dl (6.4-8.2) 03/03/19 07:00 Albumin 3.8 g/dl (3.4-5.0) 03/03/19 07:00 RPR Titer Nonreactive (NONREACTIVE) 03/03/19 07:00 lab noted Assessment: 03/04/19 09:58 alcohol withdrawal sx Plan: continue detox
[2019-03-04] MEDS: PRENATAL VITAMINS W/ FOLIC ACID TABLET (FP) PO SCH (10:13)
[2019-03-04] MEDS: NIFEdipine E.R. 30 MG TABLET (FP) PO SCH (10:13)
[2019-03-04] MEDS: NICOTINE 14 MG/24 HOURS TOPICAL PATCH TD SCH (10:13)
[2019-03-04] MEDS: ASPIRIN 81 MG CHEWABLE TABLETS PO SCH (10:13)
[2019-03-04] MEDS: chlordiazePOXIDE HCL 10 MG CAPSULE PO SCH (22:18)
[2019-03-04] MEDS: ATORVASTATIN CA 80 MG TABLET (FP) PO SCH (22:18)
[2019-03-04] MEDS: DOCUSATE SODIUM 100 MG CAPSULE (FP) PO SCH (22:18)
[2019-03-04] MEDS: THIAMINE HCL 100 MG TABLET (FP) PO SCH (22:18)
[2019-03-04] MEDS: MELATONIN 5 MG TABLETS PO PRN (22:18)
[2019-03-04] MEDS ORDERED: chlordiazePOXIDE HCL 10 MG CAPSULE PO PRN (23:00)
[2019-03-05] MEDS: chlordiazePOXIDE HCL 10 MG CAPSULE PO SCH ×4 (05:07→22:12)
[2019-03-05] MEDS: LEVOTHYROXINE NA 25 MCG TABLET (FP) PO SCH (06:02)
[2019-03-05] MEDS: PRENATAL VITAMINS W/ FOLIC ACID TABLET (FP) PO SCH (10:12)
[2019-03-05] MEDS: ASPIRIN 81 MG CHEWABLE TABLETS PO SCH (10:12)
[2019-03-05] MEDS: NICOTINE 14 MG/24 HOURS TOPICAL PATCH TD SCH (10:12)
[2019-03-05] MEDS: NIFEdipine E.R. 30 MG TABLET (FP) PO SCH (10:12)
--- NOTE | 2019-03-05 13:08 | PN ---
S CIWA - CIWA Score Nausea/Vomitin-Mild Nausea/No Vomiting Muscle Tremors: 2 Anxiety: 1-Mildly Anxious Agitation: 1-Slight > Activity Paroxysmal Sweats: 1-Minimal Palms Moist Orientation: 0-Oriented Tacttile Disturbances: 0-None Auditory Disturbances: 0-None Visual Disturbances: 0-None Headache: 1-Very Mild CIWA-Ar Total Score: 7 [facility] Progress Note (SOAP) Subjective: feeling better today tolerate food and fluid well slept through the night Objective: 03/05/19 13:10 Vital Signs Temperature 97.8 F 03/05/19 09:45 Pulse Rate 76 03/05/19 09:45 Respiratory Rate 18 03/05/19 09:45 Blood Pressure 127/83 03/05/19 09:45 O2 Sat by Pulse Oximetry (%) Laboratory Last Values WBC 9.8 K/mm3 (4.0-10.0) 03/03/19 07:00 RBC 4.65 M/mm3 (4.00-5.60) 03/03/19 07:00 Hgb 14.2 GM/dL (11.7-16.9) 03/03/19 07:00 Hct 42.1 % (35.4-49) 03/03/19 07:00 MCV 90.5 fl (80-96) 03/03/19 07:00 MCH 30.5 pg (25.7-33.7) 03/03/19 07:00 MCHC 33.7 g/dl (32.0-35.9) 03/03/19 07:00 RDW 14.8 % (11.9-15.9) 03/03/19 07:00 Plt Count 259 K/MM3 (134-434) 03/03/19 07:00 MPV 8.8 fl (7.5-11.1) 03/03/19 07:00 Sodium 138 mmol/L (136-145) 03/03/19 07:00 Potassium 3.8 mmol/L (3.5-5.1) 03/03/19 07:00 Chloride 102 mmol/L (98-107) 03/03/19 07:00 Carbon Dioxide 29 mmol/L (21-32) 03/03/19 07:00 Anion Gap 7 MMOL/L (8-16) L 03/03/19 07:00 BUN 14 mg/dL (7-18) 03/03/19 07:00 Creatinine 0.6 mg/dL (0.55-1.3) 03/03/19 07:00 Creat Clearance w eGFR 137.90 (>60) 03/03/19 07:00 Random Glucose 72 mg/dL (74-106) L 03/03/19 07:00 Calcium 9.0 mg/dL (8.5-10.1) 03/03/19 07:00 Total Bilirubin 0.4 mg/dL (0.2-1) 03/03/19 07:00 AST 22 U/L (15-37) 03/03/19 07:00 ALT 30 U/L (13-61) 03/03/19 07:00 Alkaline Phosphatase 93 U/L (45-117) 03/03/19 07:00 Total Protein 7.1 g/dl (6.4-8.2) 03/03/19 07:00 Albumin 3.8 g/dl (3.4-5.0) 03/03/19 07:00 RPR Titer Nonreactive (NONREACTIVE) 03/03/19 07:00 lab noted Assessment: 03/05/19 13:10 alcohol withdrawal sx Plan: continue detox
[2019-03-05] MEDS: ATORVASTATIN CA 80 MG TABLET (FP) PO SCH (22:12)
[2019-03-05] MEDS: THIAMINE HCL 100 MG TABLET (FP) PO SCH (22:12)
[2019-03-05] MEDS: DOCUSATE SODIUM 100 MG CAPSULE (FP) PO SCH (22:12)
[2019-03-05] MEDS: MELATONIN 5 MG TABLETS PO PRN (22:12)
[2019-03-06] MEDS: LEVOTHYROXINE NA 25 MCG TABLET (FP) PO SCH (07:31)
[2019-03-06 09:15] VITALS: BP 133/86; PULSE 89; TEMP 97.5
[2019-03-06] MEDS: NICOTINE 14 MG/24 HOURS TOPICAL PATCH TD SCH (10:45)
[2019-03-06] MEDS: ASPIRIN 81 MG CHEWABLE TABLETS PO SCH (10:46)
[2019-03-06] MEDS: NIFEdipine E.R. 30 MG TABLET (FP) PO SCH (10:46)
[2019-03-06] MEDS: PRENATAL VITAMINS W/ FOLIC ACID TABLET (FP) PO SCH (10:46)
[2019-03-06] MEDS: chlordiazePOXIDE HCL 10 MG CAPSULE PO SCH (10:46)
--- NOTE | 2019-03-06 14:27 | DS ---
[facility] Detox Discharge Summary Admission Date: 03/03/19 Discharge Date: 03/06/19 - History Present History: Alcohol Dependence Additional Comments: PATIENT GOING TO [facility] ([place], [place]) FOR AFTERCARE. PATIENT WAS DISCHARGED FROM DETOX UNIT IN STABLE MEDICAL CONDITION. Pertinent Past History: HTN, Hypothyroidism, Nicotine Dependence, C.O.P.D., History Of Seizure, History Of Abdominal Hernia, Hyperlipidemia, Depression. - Physical Exam Results Vital Signs: Vital Signs Temperature 97.5 F L 03/06/19 09:14 Pulse Rate 89 03/06/19 09:14 Respiratory Rate 18 03/06/19 09:14 Blood Pressure 133/86 03/06/19 09:14 O2 Sat by Pulse Oximetry (%) Pertinent Admission Physical Exam Findings: WITHDRAWAL SYMPTOMS. Laboratory Tests 03/03/19 03/03/19 03/03/19 07:00 07:00 07:00 WBC 9.8 RBC 4.65 Hgb 14.2 Hct 42.1 MCV 90.5 MCH 30.5 MCHC 33.7 RDW 14.8 Plt Count 259 MPV 8.8 Sodium 138 Potassium 3.8 Chloride 102 Carbon Dioxide 29 Anion Gap 7 L BUN 14 Creatinine 0.6 Creat Clearance w eGFR 137.90 Random Glucose 72 L Calcium 9.0 Total Bilirubin 0.4 AST 22 ALT 30 Alkaline Phosphatase 93 Total Protein 7.1 Albumin 3.8 RPR Titer Nonreactive LABS NOTED. - Treatment Hospital Course: Detox Protocol Followed, Detoxed Safely, Responded well, Discharged Condition Good, Rehab Referral Accepted Patient has Accepted a Rehab Referral to: [facility] ([place], [place]). - Medication Discharge Medications: Ambulatory Orders traZODone HCL [Desyrel -] 150 mg PO HS #30 tablet 04/13/18 Levothyroxine [Synthroid -] 75 mcg PO DAILY #30 tablet 06/24/18 Aspirin 81 mg PO DAILY 03/02/19 Atorvastatin Ca [Lipitor] 80 mg PO HS 03/02/19 Docusate Sodium 100 mg PO HS 03/02/19 Nifedipine [Procardia Xl] 30 mg PO DAILY 03/02/19 - Diagnosis (1) Alcohol dependence with uncomplicated withdrawal Status: Acute (2) COPD (chronic obstructive pulmonary disease) Status: Chronic Qualifiers: COPD type: unspecified COPD Qualified Code(s): J44.9 - Chronic obstructive pulmonary disease, unspecified (3) Depression Status: Chronic Qualifiers: Depression Type: unspecified Qualified Code(s): F32.9 - Major depressive disorder, single episode, unspecified (4) Hyperlipidemia Status: Chronic Qualifiers: Hyperlipidemia type: other hyperlipidemia Qualified Code(s): E78.49 - Other hyperlipidemia; E78.4 - Other hyperlipidemia (5) Hypertension Status: Chronic Qualifiers: Hypertension type: essential hypertension Qualified Code(s): I10 - Essential (primary) hypertension (6) Hypothyroidism Status: Chronic Qualifiers: Hypothyroidism type: unspecified Qualified Code(s): E03.9 - Hypothyroidism , unspecified (7) Nicotine dependence Status: Chronic Qualifiers: Nicotine product type: unspecified Substance use status: in withdrawal Qualified Code(s): F17.203 - Nicotine dependence unspecified, with withdrawal (8) Seizure Status: Chronic (9) Abdominal hernia Status: Resolved Qualifiers: Hernia type: ventral Obstruction and gangrene presence: without obstruction or gangrene Qualified Code(s): K43.9 - Ventral hernia without obstruction or gangrene - AMA Did Patient Leave Against Medical Advice: No
== END 2019-03-06 12:37 | disposition other institution (70) | DRG 897 ==
LOC: YASAS 18:03 → Y3N 03-03 00:58
PROVIDERS: ADMIT Surgery; ATTEND Surgery
PROC: HZ2ZZZZ Detoxification Services for Substance Abuse Treatment (ICD-10-PCS; principal; 2019-03-03)
DX: F10.230 Alcohol dependence with withdrawal, uncomplicated (principal); G40.509 Epileptic seizures related to external causes, not intractable, without status epilepticus; F17.213 Nicotine dependence, cigarettes, with withdrawal; I10 Essential (primary) hypertension; E78.49 Other hyperlipidemia; E03.9 Hypothyroidism, unspecified; J44.9 Chronic obstructive pulmonary disease, unspecified; K43.9 Ventral hernia without obstruction or gangrene
CPT/HCPCS: 36415; 80053; 85027; 86593; 93005; 93010

== ENCOUNTER 2019-03-06 12:48 | Inpatient (IN) | payer BC, OTHER ==
[2019-03-06] MEDS ORDERED: LOPERAMIDE HCL 2 MG CAPSULE PO PRN (14:13)
[2019-03-06] MEDS ORDERED: NICOTINE POLACRILEX 2 MG GUM BUC PRN (14:13)
[2019-03-06] MEDS ORDERED: MAG HYDROX/AL HYDROX/SIMETH 30 ML UNIT-DOSE CUP PO PRN (14:13)
[2019-03-06] MEDS ORDERED: MAGNESIUM HYDROX 2400MG/30ML ORAL SUSPENSION 30 ML CUP PO PRN (14:13)
[2019-03-06] MEDS ORDERED: guaiFENesin 200 MG/10 ML 10 ML UNIT-DOSE CUPS PO PRN (14:13)
[2019-03-06] MEDS ORDERED: MAGNESIUM CITRATE 300 ML BOTTLE PO PRN (14:13)
[2019-03-06] MEDS ORDERED: MENTHOL/PHENOL 1 EACH UD MM PRN (14:13)
[2019-03-06] MEDS ORDERED: P-EPHED 60MG/TRIPROLIDI 2.5MG TABLET PO PRN (14:13)
--- NOTE | 2019-03-06 14:16 | HP ---
[facility] Rehab Assess/Revision - Admission History Admitted to Rehab from: [facility] Date of Admission to Rehab: 03/06/2019 - Vital signs Vital Signs: Vital Signs Period Temp Pulse Resp BP Sys/Hope Pulse Ox Last 24 Hr 97.9 F 90 18 131/93 - Findings Detox History & Physical reviewed: Yes Concur with findings: Yes Comments/Additional Findings: PATIENT'S MEDICAL / MEDICATION HISTORY REVIEWED PRIOR TO DISCHARGE FROM DETOX UNIT. PATIENT WAS DISCAHRGED FROM DETOX UNIT TO BE TAKEN OVER TO REHAB UNIT IN STABLE MEDICAL CONDITION. Inpatient Rehab Admission - Rehab Decision to Admit Inpatient rehab admission?: Yes - Initial Determination Are CD services needed?: Yes Free of communicable disease: Yes Not in need of hospitalization: Yes - Rehab Admission Criteria Previous failed treatment: Yes Poor recovery environment: Yes Comorbidities: Yes Lacks judgement: No Patient is meeting Inpatient Rehab admission criteria:: Yes
[2019-03-06] MEDS: THIAMINE HCL 100 MG TABLET (FP) PO SCH (21:58)
[2019-03-06] MEDS: MELATONIN 5 MG TABLETS PO PRN (21:58)
[2019-03-06] MEDS: ATORVASTATIN CA 80 MG TABLET (FP) PO SCH (21:58)
[2019-03-06] MEDS: DOCUSATE SODIUM 100 MG CAPSULE (FP) PO SCH (21:58)
[2019-03-07] MEDS: LEVOTHYROXINE NA 25 MCG TABLET (FP) PO SCH (05:59)
[2019-03-07] MEDS: NICOTINE 14 MG/24 HOURS TOPICAL PATCH TD SCH (10:25)
[2019-03-07] MEDS: ASPIRIN 81 MG CHEWABLE TABLETS PO SCH (10:25)
[2019-03-07] MEDS: PRENATAL VITAMINS W/ FOLIC ACID TABLET (FP) PO SCH (10:25)
[2019-03-07] MEDS: NIFEdipine E.R. 30 MG TABLET (FP) PO SCH (10:25)
[2019-03-07] MEDS: ATORVASTATIN CA 80 MG TABLET (FP) PO SCH (21:51)
[2019-03-07] MEDS: MELATONIN 5 MG TABLETS PO PRN (21:51)
[2019-03-07] MEDS: THIAMINE HCL 100 MG TABLET (FP) PO SCH (21:51)
[2019-03-07] MEDS: DOCUSATE SODIUM 100 MG CAPSULE (FP) PO SCH (21:51)
[2019-03-08] MEDS: LEVOTHYROXINE NA 25 MCG TABLET (FP) PO SCH (06:47)
[2019-03-08] MEDS: NIFEdipine E.R. 30 MG TABLET (FP) PO SCH (10:24)
[2019-03-08] MEDS: PRENATAL VITAMINS W/ FOLIC ACID TABLET (FP) PO SCH (10:24)
[2019-03-08] MEDS: ASPIRIN 81 MG CHEWABLE TABLETS PO SCH (10:24)
[2019-03-08] MEDS: NICOTINE 14 MG/24 HOURS TOPICAL PATCH TD SCH (10:24)
[2019-03-08] MEDS: THIAMINE HCL 100 MG TABLET (FP) PO SCH (21:41)
[2019-03-08] MEDS: ATORVASTATIN CA 80 MG TABLET (FP) PO SCH (21:41)
[2019-03-08] MEDS: MELATONIN 5 MG TABLETS PO PRN (21:41)
[2019-03-08] MEDS: ACETAMINOPHEN 325 MG TABLET (FP) PO PRN (21:42)
[2019-03-08] MEDS: DOCUSATE SODIUM 100 MG CAPSULE (FP) PO SCH (21:42)
[2019-03-09] MEDS ORDERED: ACETAMINOPHEN 325 MG TABLET (FP) ONE (06:39)
[2019-03-09] MEDS: ACETAMINOPHEN 325 MG TABLET (FP) PO PRN ×2 (06:45→22:04)
[2019-03-09] MEDS: LEVOTHYROXINE NA 25 MCG TABLET (FP) PO SCH (06:56)
[2019-03-09] MEDS: NIFEdipine E.R. 30 MG TABLET (FP) PO SCH (10:29)
[2019-03-09] MEDS: ASPIRIN 81 MG CHEWABLE TABLETS PO SCH (10:29)
[2019-03-09] MEDS: PRENATAL VITAMINS W/ FOLIC ACID TABLET (FP) PO SCH (10:30)
[2019-03-09] MEDS: NICOTINE 14 MG/24 HOURS TOPICAL PATCH TD SCH (10:31)
--- NOTE | 2019-03-09 14:46 | PN ---
[facility] Progress Note Note: PT ADMITTED FROM DETOX TO REHAB. REPORTS HE TAKES TRAZODONE 150 MG PO EVANGELISTA BUT HAS NOT TAKEN IT SINCE ADMISSION. REPORTS HE WANTS TO GET BACK ON IT AND WANTS TO SPEAK TO PSYCH MD. ALERT O X 3. DENIES S/I. Home Medications Medication Instructions Recorded traZODone HCL [Desyrel -] 150 mg PO HS #30 tablet 04/13/18 Levothyroxine [Synthroid -] 75 mcg PO DAILY #30 tablet 06/24/18 Aspirin 81 mg PO DAILY 03/02/19 Atorvastatin Ca [Lipitor] 80 mg PO HS 03/02/19 Docusate Sodium 100 mg PO HS 03/02/19 Nifedipine [Procardia Xl] 30 mg PO DAILY 03/02/19 Vital Signs 03/09/19 07:19 Temperature 97.6 F Pulse Rate 92 H Respiratory 18 Rate Blood Pressure 134/88 LABS DONE IN DETOX GROSSLY NORMAL NAD HX DEPRESSION HX INSOMNIA PLAN:TO F/U WITH PSYCH CONSULT PER REQUEST.
[2019-03-09] MEDS: ATORVASTATIN CA 80 MG TABLET (FP) PO SCH (22:01)
[2019-03-09] MEDS: MELATONIN 5 MG TABLETS PO PRN (22:02)
[2019-03-09] MEDS: THIAMINE HCL 100 MG TABLET (FP) PO SCH (22:02)
[2019-03-09] MEDS: DOCUSATE SODIUM 100 MG CAPSULE (FP) PO SCH (22:02)
[2019-03-10] MEDS: LEVOTHYROXINE NA 25 MCG TABLET (FP) PO SCH (06:38)
[2019-03-10] MEDS: ACETAMINOPHEN 325 MG TABLET (FP) PO PRN (07:00)
[2019-03-10] MEDS: ASPIRIN 81 MG CHEWABLE TABLETS PO SCH (10:21)
[2019-03-10] MEDS: PRENATAL VITAMINS W/ FOLIC ACID TABLET (FP) PO SCH (10:21)
[2019-03-10] MEDS: NIFEdipine E.R. 30 MG TABLET (FP) PO SCH (10:21)
[2019-03-10] MEDS: NICOTINE 14 MG/24 HOURS TOPICAL PATCH TD SCH (10:22)
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
[2019-03-10] MEDS: SERTRALINE HCL 50 MG TABLET (FP) PO SCH (14:37)
[2019-03-10] MEDS: SUVOREXANT 10 MG TABLET PO PRN (21:55)
[2019-03-10] MEDS: THIAMINE HCL 100 MG TABLET (FP) PO SCH (21:56)
[2019-03-10] MEDS: DOCUSATE SODIUM 100 MG CAPSULE (FP) PO SCH (21:56)
[2019-03-10] MEDS: traZODone HCL 50 MG TABLET (FP) PO SCH (21:56)
[2019-03-10] MEDS: ATORVASTATIN CA 80 MG TABLET (FP) PO SCH (21:56)
[2019-03-11] MEDS: LEVOTHYROXINE NA 25 MCG TABLET (FP) PO SCH (06:25)
[2019-03-11] MEDS: ACETAMINOPHEN 325 MG TABLET (FP) PO PRN ×2 (06:40→21:36)
[2019-03-11] MEDS: PRENATAL VITAMINS W/ FOLIC ACID TABLET (FP) PO SCH (10:14)
[2019-03-11] MEDS: NICOTINE 14 MG/24 HOURS TOPICAL PATCH TD SCH (10:14)
[2019-03-11] MEDS: NIFEdipine E.R. 30 MG TABLET (FP) PO SCH (10:14)
[2019-03-11] MEDS: SERTRALINE HCL 50 MG TABLET (FP) PO SCH (10:14)
[2019-03-11] MEDS: ASPIRIN 81 MG CHEWABLE TABLETS PO SCH (10:14)
[2019-03-11] MEDS: SUVOREXANT 10 MG TABLET PO PRN (21:34)
[2019-03-11] MEDS: THIAMINE HCL 100 MG TABLET (FP) PO SCH (21:35)
[2019-03-11] MEDS: ATORVASTATIN CA 80 MG TABLET (FP) PO SCH (21:35)
[2019-03-11] MEDS: DOCUSATE SODIUM 100 MG CAPSULE (FP) PO SCH (21:35)
[2019-03-11] MEDS: traZODone HCL 50 MG TABLET (FP) PO SCH (21:37)
[2019-03-12] MEDS: ACETAMINOPHEN 325 MG TABLET (FP) PO PRN ×3 (06:19→21:09)
[2019-03-12] MEDS: LEVOTHYROXINE NA 25 MCG TABLET (FP) PO SCH (06:19)
[2019-03-12] MEDS: NIFEdipine E.R. 30 MG TABLET (FP) PO SCH (10:48)
[2019-03-12] MEDS: SERTRALINE HCL 50 MG TABLET (FP) PO SCH (10:49)
[2019-03-12] MEDS: ASPIRIN 81 MG CHEWABLE TABLETS PO SCH (10:49)
[2019-03-12] MEDS: PRENATAL VITAMINS W/ FOLIC ACID TABLET (FP) PO SCH (10:49)
[2019-03-12] MEDS: NICOTINE 14 MG/24 HOURS TOPICAL PATCH TD SCH (10:49)
[2019-03-12] MEDS: SUVOREXANT 10 MG TABLET PO PRN (21:06)
[2019-03-12] MEDS: ATORVASTATIN CA 80 MG TABLET (FP) PO SCH (21:08)
[2019-03-12] MEDS: DOCUSATE SODIUM 100 MG CAPSULE (FP) PO SCH (21:08)
[2019-03-12] MEDS: traZODone HCL 50 MG TABLET (FP) PO SCH (21:09)
[2019-03-12] MEDS: THIAMINE HCL 100 MG TABLET (FP) PO SCH (21:09)
[2019-03-13] MEDS: LEVOTHYROXINE NA 25 MCG TABLET (FP) PO SCH (06:01)
[2019-03-13] MEDS: ACETAMINOPHEN 325 MG TABLET (FP) PO PRN ×3 (06:01→21:51)
[2019-03-13] MEDS: NICOTINE 14 MG/24 HOURS TOPICAL PATCH TD SCH (10:45)
[2019-03-13] MEDS: NIFEdipine E.R. 30 MG TABLET (FP) PO SCH (10:46)
[2019-03-13] MEDS: SERTRALINE HCL 50 MG TABLET (FP) PO SCH (10:46)
[2019-03-13] MEDS: PRENATAL VITAMINS W/ FOLIC ACID TABLET (FP) PO SCH (10:48)
[2019-03-13] MEDS: ASPIRIN 81 MG CHEWABLE TABLETS PO SCH (12:17)
[2019-03-13] MEDS: traZODone HCL 50 MG TABLET (FP) PO SCH (21:51)
[2019-03-13] MEDS: DOCUSATE SODIUM 100 MG CAPSULE (FP) PO SCH (21:51)
[2019-03-13] MEDS: ATORVASTATIN CA 80 MG TABLET (FP) PO SCH (21:51)
[2019-03-13] MEDS: SUVOREXANT 10 MG TABLET PO PRN (21:51)
[2019-03-13] MEDS: THIAMINE HCL 100 MG TABLET (FP) PO SCH (21:51)
[2019-03-14] MEDS: LEVOTHYROXINE NA 25 MCG TABLET (FP) PO SCH (06:23)
[2019-03-14] MEDS: ACETAMINOPHEN 325 MG TABLET (FP) PO PRN ×2 (06:24→12:24)
[2019-03-14] MEDS: ASPIRIN 81 MG CHEWABLE TABLETS PO SCH (09:48)
[2019-03-14] MEDS: PRENATAL VITAMINS W/ FOLIC ACID TABLET (FP) PO SCH (09:48)
[2019-03-14] MEDS: NICOTINE 14 MG/24 HOURS TOPICAL PATCH TD SCH (09:48)
[2019-03-14] MEDS: SERTRALINE HCL 50 MG TABLET (FP) PO SCH (09:49)
[2019-03-14] MEDS: NIFEdipine E.R. 30 MG TABLET (FP) PO SCH (09:49)
[2019-03-14] MEDS: ATORVASTATIN CA 80 MG TABLET (FP) PO SCH (22:02)
[2019-03-14] MEDS: THIAMINE HCL 100 MG TABLET (FP) PO SCH (22:02)
[2019-03-14] MEDS: traZODone HCL 50 MG TABLET (FP) PO SCH (22:02)
[2019-03-14] MEDS: DOCUSATE SODIUM 100 MG CAPSULE (FP) PO SCH (22:03)
[2019-03-15] MEDS: LEVOTHYROXINE NA 25 MCG TABLET (FP) PO SCH (06:53)
[2019-03-15] MEDS: ACETAMINOPHEN 325 MG TABLET (FP) PO PRN ×2 (06:54→22:07)
[2019-03-15] MEDS: PRENATAL VITAMINS W/ FOLIC ACID TABLET (FP) PO SCH (11:18)
[2019-03-15] MEDS: NICOTINE 14 MG/24 HOURS TOPICAL PATCH TD SCH (11:18)
[2019-03-15] MEDS: NIFEdipine E.R. 30 MG TABLET (FP) PO SCH (11:19)
[2019-03-15] MEDS: ASPIRIN 81 MG CHEWABLE TABLETS PO SCH (11:19)
[2019-03-15] MEDS: SERTRALINE HCL 50 MG TABLET (FP) PO SCH (11:19)
[2019-03-15] MEDS: SUVOREXANT 10 MG TABLET PO PRN (22:05)
[2019-03-15] MEDS: traZODone HCL 50 MG TABLET (FP) PO SCH (22:06)
[2019-03-15] MEDS: ATORVASTATIN CA 80 MG TABLET (FP) PO SCH (22:06)
[2019-03-15] MEDS: THIAMINE HCL 100 MG TABLET (FP) PO SCH (22:06)
[2019-03-15] MEDS: DOCUSATE SODIUM 100 MG CAPSULE (FP) PO SCH (22:06)
[2019-03-16] MEDS: ACETAMINOPHEN 325 MG TABLET (FP) PO PRN ×2 (06:31→21:51)
[2019-03-16] MEDS: LEVOTHYROXINE NA 25 MCG TABLET (FP) PO SCH (06:31)
[2019-03-16] MEDS: ASPIRIN 81 MG CHEWABLE TABLETS PO SCH (10:53)
[2019-03-16] MEDS: NICOTINE 14 MG/24 HOURS TOPICAL PATCH TD SCH (10:53)
[2019-03-16] MEDS: SERTRALINE HCL 50 MG TABLET (FP) PO SCH (10:54)
[2019-03-16] MEDS: PRENATAL VITAMINS W/ FOLIC ACID TABLET (FP) PO SCH (10:54)
[2019-03-16] MEDS: NIFEdipine E.R. 30 MG TABLET (FP) PO SCH (10:55)
--- NOTE | 2019-03-16 15:23 | PN ---
S Progress Note Note: PT REQUESTING TO BE ON CAMPRAL TO HELP HIM CURB DRINKING PROBLEM. PT IS ALERT O X 3. Vital Signs - 24 hr 03/16/19 03/16/19 03/16/19 00:30 03:30 06:55 Temperature 97.8 F Pulse Rate 85 Respiratory 16 16 18 Rate Blood Pressure 124/74 ALCOHOL DEPENDENCE PLAN:CAMPRAL 666 MG PO TID, STARTING ON 03/17/19 WILL FOLLOW UP WITH [facility] UPON COMPLETION OF REHAB.
[2019-03-16] MEDS: DOCUSATE SODIUM 100 MG CAPSULE (FP) PO SCH (21:51)
[2019-03-16] MEDS: traZODone HCL 50 MG TABLET (FP) PO SCH (21:51)
[2019-03-16] MEDS: SUVOREXANT 10 MG TABLET PO PRN (21:51)
[2019-03-16] MEDS: THIAMINE HCL 100 MG TABLET (FP) PO SCH (21:51)
[2019-03-16] MEDS: ATORVASTATIN CA 80 MG TABLET (FP) PO SCH (21:51)
[2019-03-17] MEDS: LEVOTHYROXINE NA 25 MCG TABLET (FP) PO SCH (06:24)
[2019-03-17] MEDS: ACETAMINOPHEN 325 MG TABLET (FP) PO PRN (06:35)
[2019-03-17] MEDS: SERTRALINE HCL 50 MG TABLET (FP) PO SCH (10:44)
[2019-03-17] MEDS: ASPIRIN 81 MG CHEWABLE TABLETS PO SCH (10:44)
[2019-03-17] MEDS: ACAMPROSATE CALCIUM 333 MG TABLET.DR PO SCH ×3 (10:45→21:39)
[2019-03-17] MEDS: NIFEdipine E.R. 30 MG TABLET (FP) PO SCH (10:45)
[2019-03-17] MEDS: PRENATAL VITAMINS W/ FOLIC ACID TABLET (FP) PO SCH (10:46)
[2019-03-17] MEDS: NICOTINE 14 MG/24 HOURS TOPICAL PATCH TD SCH (10:46)
[2019-03-17] MEDS: ATORVASTATIN CA 80 MG TABLET (FP) PO SCH (21:39)
[2019-03-17] MEDS: SUVOREXANT 10 MG TABLET PO PRN (21:39)
[2019-03-17] MEDS: traZODone HCL 50 MG TABLET (FP) PO SCH (21:39)
[2019-03-17] MEDS: THIAMINE HCL 100 MG TABLET (FP) PO SCH (21:39)
[2019-03-17] MEDS: DOCUSATE SODIUM 100 MG CAPSULE (FP) PO SCH (21:39)
[2019-03-18] MEDS: LEVOTHYROXINE NA 25 MCG TABLET (FP) PO SCH (06:09)
[2019-03-18] MEDS: ACAMPROSATE CALCIUM 333 MG TABLET.DR PO SCH ×3 (06:09→21:29)
[2019-03-18] MEDS: ASPIRIN 81 MG CHEWABLE TABLETS PO SCH (10:00)
[2019-03-18] MEDS: NIFEdipine E.R. 30 MG TABLET (FP) PO SCH (10:00)
[2019-03-18] MEDS: SERTRALINE HCL 50 MG TABLET (FP) PO SCH (10:01)
[2019-03-18] MEDS: NICOTINE 14 MG/24 HOURS TOPICAL PATCH TD SCH (10:01)
[2019-03-18] MEDS: PRENATAL VITAMINS W/ FOLIC ACID TABLET (FP) PO SCH (10:01)
[2019-03-18] MEDS: ATORVASTATIN CA 80 MG TABLET (FP) PO SCH (21:26)
[2019-03-18] MEDS: SUVOREXANT 15 MG TABLET PO PRN (21:27)
[2019-03-18] MEDS: THIAMINE HCL 100 MG TABLET (FP) PO SCH (21:27)
[2019-03-18] MEDS: DOCUSATE SODIUM 100 MG CAPSULE (FP) PO SCH (21:27)
[2019-03-18] MEDS: traZODone HCL 50 MG TABLET (FP) PO SCH (21:27)
[2019-03-18] MEDS: ACETAMINOPHEN 325 MG TABLET (FP) PO PRN (21:28)
[2019-03-19] MEDS: LEVOTHYROXINE NA 25 MCG TABLET (FP) PO SCH (06:09)
[2019-03-19] MEDS: ACAMPROSATE CALCIUM 333 MG TABLET.DR PO SCH ×3 (06:11→21:50)
[2019-03-19] MEDS: NICOTINE 14 MG/24 HOURS TOPICAL PATCH TD SCH (10:27)
[2019-03-19] MEDS: PRENATAL VITAMINS W/ FOLIC ACID TABLET (FP) PO SCH (10:27)
[2019-03-19] MEDS: SERTRALINE HCL 50 MG TABLET (FP) PO SCH (10:27)
[2019-03-19] MEDS: ASPIRIN 81 MG CHEWABLE TABLETS PO SCH (10:27)
[2019-03-19] MEDS: NIFEdipine E.R. 30 MG TABLET (FP) PO SCH (10:27)
[2019-03-19] MEDS: ACETAMINOPHEN 325 MG TABLET (FP) PO PRN ×2 (10:28→21:48)
--- NOTE | 2019-03-19 15:06 | PN ---
[facility] Progress Note Note: Patient is scheduled for discharge tomorrow. Scripts for 30 days supply of medications(Zoloft 100 mg/day, Trazadone 150 mg/hs) will be electronically transmitted to [facility] at [address] [place], [place] [id number]
[2019-03-19] MEDS: SUVOREXANT 15 MG TABLET PO PRN (21:48)
[2019-03-19] MEDS: THIAMINE HCL 100 MG TABLET (FP) PO SCH (21:49)
[2019-03-19] MEDS: ATORVASTATIN CA 80 MG TABLET (FP) PO SCH (21:50)
[2019-03-19] MEDS: DOCUSATE SODIUM 100 MG CAPSULE (FP) PO SCH (21:50)
[2019-03-19] MEDS: traZODone HCL 50 MG TABLET (FP) PO SCH (21:50)
[2019-03-20] MEDS: ACAMPROSATE CALCIUM 333 MG TABLET.DR PO SCH (06:30)
[2019-03-20] MEDS: ACETAMINOPHEN 325 MG TABLET (FP) PO PRN (06:30)
[2019-03-20] MEDS: LEVOTHYROXINE NA 25 MCG TABLET (FP) PO SCH (06:30)
[2019-03-20 07:37] VITALS: BP 123/90; PULSE 92; TEMP 97.8
--- NOTE | 2019-03-20 08:42 | PN ---
[facility] Progress Note Note: PT COMPLETED REHAB AND DISCHARGED TODAY. PT HAS BEEN REFERRED TO [facility] ON [address], [place] FOR CD AFTER[facility]ARE. PT REPORTS HE WILL FOLLOW UP WITH HIS PMD AT [facility] AT [address], [place] FOR MEDICAL MANAGEMENT. 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 PT IS ALERT O X 3. OOB AMBULATING WITH STEADY GAIT. DENIES S/H/I. Home Medications Medication Instructions Recorded traZODone HCL [Desyrel -] 150 mg PO HS #30 tablet 04/13/18 Levothyroxine [Synthroid -] 75 mcg PO DAILY #30 tablet 06/24/18 Aspirin 81 mg PO DAILY 03/02/19 Atorvastatin Ca [Lipitor] 80 mg PO HS 03/02/19 Docusate Sodium 100 mg PO HS 03/02/19 Nifedipine [Procardia Xl] 30 mg PO DAILY 03/02/19 Acamprosate Calcium [Campral -] 666 mg PO TID 30 Days tablet. 03/19/19 Sertraline HCl [Zoloft] 100 mg PO DAILY #30 tablet 03/19/19 Trazodone HCl 150 mg PO HS #30 tablet 03/19/19 Vital Signs - 24 hr 03/20/19 03/20/19 03/20/19 00:30 03:30 07:36 Temperature 97.8 F Pulse Rate 92 H Respiratory 18 18 18 Rate Blood Pressure 123/90 NAD MEDICALLY STABLE PLAN:D/C PT TODAY. FOLLOW UP WITH [facility] RECOMMENDATIONS. FOLLOW UP WITH PCP FOR MEDICAL MANAGEMENT WITHIN 1-2 WEEKS AFTER DISCHARGE.
[2019-03-20] MEDS: PRENATAL VITAMINS W/ FOLIC ACID TABLET (FP) PO SCH (09:01)
[2019-03-20] MEDS: ASPIRIN 81 MG CHEWABLE TABLETS PO SCH (09:01)
[2019-03-20] MEDS: SERTRALINE HCL 50 MG TABLET (FP) PO SCH (09:01)
[2019-03-20] MEDS: NIFEdipine E.R. 30 MG TABLET (FP) PO SCH (09:01)
[2019-03-20] MEDS: NICOTINE 14 MG/24 HOURS TOPICAL PATCH TD SCH (09:01)
== END 2019-03-20 10:35 | disposition home or self-care (01) | DRG 895 ==
LOC: YASAS 12:48 → Y5N 12:49
PROVIDERS: ADMIT Neuromusculoskeletal Medicine & OMM; ATTEND Neuromusculoskeletal Medicine & OMM
PROC: HZ42ZZZ Group Counseling for Substance Abuse Treatment, Cognitive-Behavioral (ICD-10-PCS; principal; 2019-03-06)
DX: F10.20 Alcohol dependence, uncomplicated (principal); F33.1 Major depressive disorder, recurrent, moderate; F19.282 Other psychoactive substance dependence with psychoactive substance-induced sleep disorder; K57.92 Diverticulitis of intestine, part unspecified, without perforation or abscess without bleeding; F17.210 Nicotine dependence, cigarettes, uncomplicated; F19.24 Other psychoactive substance dependence with psychoactive substance-induced mood disorder; E78.5 Hyperlipidemia, unspecified; E03.9 Hypothyroidism, unspecified; J44.9 Chronic obstructive pulmonary disease, unspecified; Z86.69 Personal history of other diseases of the nervous system and sense organs

== ENCOUNTER 2023-05-25 04:07 | Inpatient (IN) | payer BC, OTHER ==
[2023-05-25 04:26] VITALS: BMI 25.8
[2023-05-25] MEDS ORDERED: SODIUM CHLORIDE 0.9% 500 ML INFUS.BAG IV ONE (05:27)
[2023-05-25] MEDS ORDERED: methylPREDNISolone NA SUCC 125 MG/2 ML VIAL IVPUSH ONE (05:53)
[2023-05-25] MEDS ORDERED: AZITHROMYCIN IVPB 500 MG in DEXTROSE 5%-WATER - 250 ML IVPB ONE (05:53)
[2023-05-25] MEDS ORDERED: ALBUTEROL SO4 2.5/IPRATROPIUM 0.5 INH SOL 3 ML VIAL.NEB. NEB ONE ×2 (05:53→05:55)
[2023-05-25] MEDS ORDERED: methylPREDNISolone NA SUCC 125 MG/2 ML VIAL ONE (05:55)
[2023-05-25] MEDS ORDERED: AZITHROMYCIN IVPB 500 MG/250 ML BAG IVPB ONE (06:27)
[2023-05-25 06:37] LABS: VENOUS BASE EXCESS 1.8 mmol/L (-2-2); VENOUS O2 SATURATION 91.4 % (70-80); VENOUS PCO2 38.5 mmHg (38-52); VENOUS PH 7.444 (7.310-7.410)
[2023-05-25] MEDS ORDERED: chlordiazePOXIDE HCL 25 MG CAPSULE PO ONE (06:50)
[2023-05-25] MEDS ORDERED: chlordiazePOXIDE HCL 25 MG CAPSULE ONE ×3 (06:52→23:21)
[2023-05-25 07:02] LABS: BASO % 0.3 % (0-2.0); HEMATOCRIT 47.2 % (35.4-49); HEMOGLOBIN 15.6 GM/dL (11.7-16.9); LYMPH % 5.3 % (8-40); MCH 29.3 pg (25.7-33.7); MCHC 33.1 g/dl (32.0-35.9); MEAN CELL VOLUME 88.5 fl (80-96); MEAN PLT VOLUME 9.2 fl (7.5-11.1); MONO % 5.4 % (3.8-10.2); PLATELET COUNT 307 10^3/uL (134-434); RBC 5.33 M/mm3 (4.00-5.60); WHITE BLOOD COUNT 16.3 K/mm3 (4.0-10.0)
[2023-05-25 07:25] LABS: CHLORIDE 106 mmol/L (98-107); INR 0.99 (0.83-1.09); POTASSIUM 4.3 mmol/L (3.5-5.1); PROTHROMBIN TIME (PATIENT) 11.5 SEC (9.7-13.0); SODIUM 142 mmol/L (136-145)
[2023-05-25 07:28] LABS: ACTIVATED PTT 28.2 SECONDS (25.2-36.5); ALBUMIN 4.4 g/dl (3.4-5.0); ANION GAP 11 MMOL/L (8-16); CALCIUM 9.6 mg/dL (8.5-10.1); CO2 26 mmol/L (21-32); GLUCOSE,RANDOM 121 mg/dL (74-106); LIPASE 127 U/L (73-393); MAGNESIUM 1.8 mg/dL (1.8-2.4)
[2023-05-25 07:29] LABS: BLOOD UREA NITROGEN 36.4 mg/dL (7-18)
[2023-05-25 07:31] LABS: CREATININE 1.3 mg/dL (0.55-1.3); SGOT/AST 128 U/L (15-37); SGPT/ALT 56 U/L (13-61)
[2023-05-25 07:33] LABS: BILIRUBIN,TOTAL 1.3 mg/dL (0.2-1)
[2023-05-25 07:34] LABS: ALK PHOS 124 U/L (45-117)
[2023-05-25 07:37] LABS: N-TERMINAL BNP 1570.3 pg/ml (5-125)
[2023-05-25] MEDS ORDERED: FOLIC ACID INJECTION - 1 MG, THIAMINE HCL 100 MG, MULTIVIT INJECTION ADULT 10 ML in SOD... IVPB ONE (07:54)
[2023-05-25] MEDS ORDERED: MULTIVITAMINS (DAILY MVI) TABLET (FP) PO ONE (07:56)
[2023-05-25] MEDS ORDERED: THIAMINE HCL 200 MG/2 ML VIAL IVPB ONE (07:56)
[2023-05-25] MEDS ORDERED: POTASSIUM PHOSPHATE 30 MM in SODIUM CHLORIDE 500 ML IVPB ONE (07:57)
[2023-05-25] MEDS ORDERED: THIAMINE HCL 200 MG/2 ML VIAL ONE (09:25)
[2023-05-25] MEDS ORDERED: MULTIVITAMINS (DAILY MVI) TABLET (FP) ONE (09:25)
[2023-05-25] MEDS ORDERED: ACETAMINOPHEN 325 MG TABLET (FP) PO PRN (11:51)
[2023-05-25] MEDS ORDERED: chlordiazePOXIDE HCL 25 MG CAPSULE PO PRN (11:55)
[2023-05-25] MEDS ORDERED: ALBUTEROL SO4 2.5/IPRATROPIUM 0.5 INH SOL 3 ML VIAL.NEB. NEB PRN (12:03)
[2023-05-25 12:08] LABS: EPI CELLS 4 /uL (0-25.1); HYALINE CASTS 0 /uL (0-3.1); PH,URINE 5.5 (5.0-8.0); URINE APPEARANCE CLEAR; URINE BACTERIA 24 /uL (0-1359); URINE BILIRUBIN NEGATIVE (NEGATIVE); URINE COLOR YELLOW; URINE GLUCOSE (UA) NEGATIVE (NEGATIVE); URINE KETONE 1+ (NEGATIVE); URINE LEUK ESTERASE NEGATIVE (NEGATIVE); URINE NITRITE NEGATIVE (NEGATIVE); URINE PROTEIN 1+ (NEGATIVE); URINE RBC 11 /uL (0-23.9); URINE UROBILINOGEN 0.2 mg/dL (0.2-1.0); URINE WBC 6 /uL (0-25.8)
[2023-05-25 12:22] LABS: METHADONE, UR NEGATIVE (NEGATIVE); PHENCYCLIDINE,URINE NEGATIVE (NEGATIVE); URINE AMPHETAMINES NEGATIVE (NEGATIVE); URINE BENZODIAZEPINES NEGATIVE (NEGATIVE)
[2023-05-25 12:23] LABS: COCAINE, UR NEGATIVE (NEGATIVE); OPIATES, URI NEGATIVE (NEGATIVE); URINE BARBITURATES NEGATIVE (NEGATIVE)
[2023-05-25] MEDS: INSULIN SLIDING SCALE (NOVOLOG) 1 VIAL SQ SCH ×2 (17:54→23:36)
[2023-05-25] MEDS: chlordiazePOXIDE HCL 25 MG CAPSULE PO SCH ×2 (17:54→23:36)
[2023-05-25] MEDS ORDERED: ATORVASTATIN CA 80 MG TABLET (FP) PO SCH (22:00)
[2023-05-25] MEDS ORDERED: traZODone HCL 100 MG TABLET (FP) ONE (23:21)
[2023-05-25] MEDS ORDERED: ATORVASTATIN CA 80 MG TABLET (FP) ONE (23:21)
[2023-05-25] MEDS: traZODone HCL 100 MG TABLET (FP) PO SCH (23:35)
[2023-05-26] MEDS ORDERED: chlordiazePOXIDE HCL 25 MG CAPSULE ONE ×2 (05:08→13:06)
[2023-05-26] MEDS: chlordiazePOXIDE HCL 25 MG CAPSULE PO SCH ×4 (05:11→22:30)
[2023-05-26] MEDS ORDERED: LEVOTHYROXINE NA 75 MCG TABLET (FP) PO SCH (07:00)
[2023-05-26] MEDS ORDERED: MAGNESIUM SULF 50% (8.12 MEQ/2 ML-1 GM VIAL) IVPB ONE (07:46)
[2023-05-26] MEDS: INSULIN SLIDING SCALE (NOVOLOG) 1 VIAL SQ SCH ×4 (08:55→22:32)
[2023-05-26] MEDS ORDERED: POTASSIUM PHOSPHATE 30 MM in SODIUM CHLORIDE 500 ML IVPB ONE (09:00)
[2023-05-26] MEDS ORDERED: LEVOTHYROXINE NA 75 MCG TABLET (FP) ONE (09:12)
[2023-05-26] MEDS ORDERED: THIAMINE HCL 100 MG TABLET (FP) ONE (09:12)
[2023-05-26] MEDS ORDERED: NIFEdipine E.R. 30 MG TABLET PO ONE (09:12)
[2023-05-26] MEDS ORDERED: FOLIC ACID 1 MG TABLET (FP) ONE (09:12)
[2023-05-26] MEDS: THIAMINE HCL 100 MG TABLET (FP) PO SCH ×2 (09:27→22:33)
[2023-05-26] MEDS: FOLIC ACID 1 MG TABLET (FP) PO SCH (09:27)
[2023-05-26] MEDS: NIFEdipine E.R. 30 MG TABLET PO SCH (09:27)
[2023-05-26] MEDS ORDERED: THIAMINE HCL 100 MG TABLET (FP) PO SCH (10:00)
[2023-05-26] MEDS ORDERED: ALBUTEROL SO4 0.5 % INH SOLN 2.5 MG/0.5 ML VIAL.NEB. NEB PRN (10:35)
[2023-05-26] MEDS ORDERED: MAGNESIUM SULFATE IN WATER 2 GM/50 ML IVPB IVPB ONE (11:21)
[2023-05-26] MEDS: MULTIVITAMINS THER W-MINERALS COMBO TABLET (FP) PO SCH (12:00)
[2023-05-26] MEDS ORDERED: CEFTRIAXONE 1 GM/50 ML BAG ONE (13:05)
[2023-05-26] MEDS ORDERED: DOXYCYCLINE HYCLATE 100 MG VIAL ONE (13:06)
[2023-05-26] MEDS: CEFTRIAXONE 1 GM in DEXTROSE 5%-WATER - 50 ML IVPB SCH (13:13)
[2023-05-26] MEDS: DOXYCYCLINE INJECTION 100 MG in DEXTROSE 5%-WATER 100 ML IVPB SCH ×2 (14:23→22:33)
[2023-05-26] MEDS: BUDESONIDE/FORMETEROL FUMARATE 160/4.5 mcg INHALER IH SCH ×2 (14:35→22:32)
[2023-05-26] MEDS ORDERED: INSULIN (NOVOLOG) ASPART 100 UNITS/ML 10ML VIAL ONE (22:23)
[2023-05-26] MEDS ORDERED: traZODone HCL 50 MG TABLET (FP) ONE (22:24)
[2023-05-26] MEDS: traZODone HCL 100 MG TABLET (FP) PO SCH (22:31)
[2023-05-26] MEDS: HEPARIN NA (PORCINE) 5,000 UNITS/ML 1ML VIAL SQ SCH (22:31)
[2023-05-27] MEDS: INSULIN SLIDING SCALE (NOVOLOG) 1 VIAL SQ SCH ×2 (06:50→11:04)
[2023-05-27] MEDS: chlordiazePOXIDE HCL 25 MG CAPSULE PO SCH ×2 (06:51→10:23)
[2023-05-27] MEDS ORDERED: LEVOTHYROXINE NA 88 MCG TABLET (FP) PO SCH ×2 (07:00→10:00)
[2023-05-27 07:50] LABS: BASO % 0.5 % (0-2.0); EOS % 1.1 % (0-4.5); HEMATOCRIT 47.6 % (35.4-49); LYMPH % 22.4 % (8-40); MCHC 33.6 g/dl (32.0-35.9); MEAN CELL VOLUME 89.5 fl (80-96); MEAN PLT VOLUME 8.9 fl (7.5-11.1); MONO % 3.6 % (3.8-10.2); NEUT % 72.4 % (42.8-82.8); PLATELET COUNT 216 10^3/uL (134-434); RBC 5.32 M/mm3 (4.00-5.60); RDW 14.8 % (11.9-15.9); WHITE BLOOD COUNT 7.7 K/mm3 (4.0-10.0)
[2023-05-27 07:55] LABS: POTASSIUM 3.9 mmol/L (3.5-5.1)
[2023-05-27 07:58] LABS: CALCIUM 8.9 mg/dL (8.5-10.1)
[2023-05-27 07:59] LABS: ALBUMIN 3.7 g/dl (3.4-5.0); BLOOD UREA NITROGEN 12.3 mg/dL (7-18)
[2023-05-27 08:02] LABS: CREATININE 0.6 mg/dL (0.55-1.3); PHOSPHOROUS 2.8 mg/dL (2.5-4.9)
[2023-05-27 08:03] LABS: BILIRUBIN,TOTAL 0.4 mg/dL (0.2-1)
[2023-05-27] MEDS ORDERED: TAMSULOSIN HCL 0.4 MG CAP PO SCH (08:30)
[2023-05-27 09:43] VITALS: BP 137/93; PULSE 82; RESP 19; TEMP 97.9
[2023-05-27] MEDS ORDERED: FAMOTIDINE 20 MG TABLET PO SCH (10:00)
[2023-05-27] MEDS ORDERED: FINASTERIDE 5 MG TABLET (FP) PO SCH (10:00)
[2023-05-27] MEDS: FOLIC ACID 1 MG TABLET (FP) PO SCH (10:23)
[2023-05-27] MEDS: THIAMINE HCL 100 MG TABLET (FP) PO SCH (10:23)
[2023-05-27] MEDS: MULTIVITAMINS THER W-MINERALS COMBO TABLET (FP) PO SCH (10:23)
[2023-05-27] MEDS: NIFEdipine E.R. 30 MG TABLET PO SCH (10:25)
[2023-05-27] MEDS: DOXYCYCLINE INJECTION 100 MG in DEXTROSE 5%-WATER 100 ML IVPB SCH (10:25)
[2023-05-27] MEDS: BUDESONIDE/FORMETEROL FUMARATE 160/4.5 mcg INHALER IH SCH (10:29)
[2023-05-27] MEDS: CEFTRIAXONE 1 GM in DEXTROSE 5%-WATER - 50 ML IVPB SCH (10:30)
[2023-05-27] MEDS: HEPARIN NA (PORCINE) 5,000 UNITS/ML 1ML VIAL SQ SCH (10:36)
[2023-05-27] MEDS ORDERED: ZINC OXIDE 20% TOPICAL OINTMENT 30 GM TUBE TP SCH (22:00)
[2023-05-28] MEDS ORDERED: chlordiazePOXIDE HCL 10 MG CAPSULE PO PRN
[2023-05-28] MEDS ORDERED: chlordiazePOXIDE HCL 10 MG CAPSULE PO SCH (05:00)
[2023-05-29] MEDS ORDERED: chlordiazePOXIDE HCL 10 MG CAPSULE PO SCH (05:00)
[2023-05-30] MEDS ORDERED: chlordiazePOXIDE HCL 10 MG CAPSULE PO ONE (05:00)
== END 2023-05-27 15:55 | disposition other institution (70) | DRG 897 ==
LOC: JER 04:07 → JERBED 11:13 → J4W 05-26 15:13
PROVIDERS: ADMIT Internal Medicine; ATTEND Internal Medicine
PROC: HZ2ZZZZ Detoxification Services for Substance Abuse Treatment (ICD-10-PCS; principal; 2023-05-25)
DX: F10.230 Alcohol dependence with withdrawal, uncomplicated (principal); F33.1 Major depressive disorder, recurrent, moderate; I10 Essential (primary) hypertension; E03.9 Hypothyroidism, unspecified; J44.9 Chronic obstructive pulmonary disease, unspecified; E11.9 Type 2 diabetes mellitus without complications; G31.2 Degeneration of nervous system due to alcohol; R05.9 Cough, unspecified; E83.39 Other disorders of phosphorus metabolism; E78.5 Hyperlipidemia, unspecified; D72.829 Elevated white blood cell count, unspecified; F17.210 Nicotine dependence, cigarettes, uncomplicated; G47.00 Insomnia, unspecified
CPT/HCPCS: 0241U-QW; 36415; 71045-TC-FY; 71046-TC-FY; 71275-TC; 80053; 80307; 81003; 82803; 82962; 83036; 83605; 83690; 83735; 83880; 84100; 84443; 84484; 85025; 85379; 85610; 85730; 86850; 86900; 86901; 87040; 87086; 93005; 93010; 93306-TC; 99285-25; J1644; Q9967